=== PATIENT | female | born 1985 ===

== ENCOUNTER 2021-02-20 07:42 | Outpatient (REF) | payer OTHER, SELFPAY ==
[2021-02-20 08:43] LABS: Hematocrit 38.5 % (37-47); Hemoglobin 12.1 g/dl (12.0-16.0); Mean Corpuscular HGB Conc 31.4 g/dl (31.0-35.0); Mean Corpuscular Hemoglobin 27.2 pg (27.0-33.0); Mean Corpuscular Volume 86.5 fL (80-98); Mean Platelet Volume 11.6 fL (9.4-12.3); Platelet Count 266 X10*3/uL (160-400); Red Blood Count 4.45 X10*6/uL (4.20-5.50); Red Cell Distribution Width 12.5 % (11.0-16.0); White Blood Count 6.4 X10*3/uL (4.8-10.8)
[2021-02-20 08:54] LABS: Estimated Average Glucose 120 mg/dL; Hemoglobin A1c % 5.8 %
[2021-02-20 08:56] LABS: Alanine Aminotransferase 49 U/L (0-31); Albumin Level 4.2 g/dL (3.5-5.0); Alkaline Phosphatase 62 U/L (39-117); Anion Gap 15 (12-20); Aspartate Amino Transferase 35 U/L (5-31); Bilirubin Total 0.5 mg/dL (0.0-1.0); Blood Urea Nitrogen 8 mg/dL (9-16); Calcium 9.1 mg/dL (8.4-10.2); Carbon Dioxide 25 mmol/L (22-29); Chloride 104 mmol/L (96-108); Cholesterol 234 mg/dL; Estimated Glomerular Filt Rate > 60; Glucose Fasting 120 mg/dL (60-99); HDL Cholesterol 47 mg/dL; LDL Cholesterol Calculated 157 mg/dl; Potassium 4.8 mmol/L (3.3-5.1); Sodium 139 mmol/L (135-145); Total Protein 7.5 g/dL (6.5-8.0); Triglycerides 153 mg/dL
== END 2021-02-20 07:43 | disposition home or self-care (01) ==
LOC: HO.LAB 07:42
PROVIDERS: PCP Physician Assistant; Visit Provider Physician Assistant
DX: Z13.220 Encounter for screening for lipoid disorders (principal); Z13.29 Encounter for screening for other suspected endocrine disorder; E66.09 Other obesity due to excess calories; Z68.38 Body mass index [BMI] 38.0-38.9, adult; I10 Essential (primary) hypertension
CPT/HCPCS: 36415; 80053; 80061; 83036; 84443; 85027

== ENCOUNTER 2021-03-10 12:18 | Outpatient (REF) | payer OTHER, SELFPAY ==
[2021-03-11 05:46] LABS: CT PCR NOT DETECTED (Not Detect.); NG PCR NOT DETECTED (Not Detect.)
[2021-03-11 09:01] LABS: BV Int Neg Control Negative (Negative); BV Int Pos Control Positive (Positive)
== END 2021-03-10 12:19 | disposition home or self-care (01) ==
LOC: HO.LAB 12:18
PROVIDERS: PCP Physician Assistant; Visit Provider Advanced Practice Midwife
DX: Z01.411 Encounter for gynecological examination (general) (routine) with abnormal findings (principal); Z11.3 Encounter for screening for infections with a predominantly sexual mode of transmission; N94.6 Dysmenorrhea, unspecified; N92.1 Excessive and frequent menstruation with irregular cycle; E66.9 Obesity, unspecified; Z97.5 Presence of (intrauterine) contraceptive device; Z80.3 Family history of malignant neoplasm of breast
CPT/HCPCS: 81025; 87480; 87491; 87510; 87591; 87660

== ENCOUNTER 2021-03-18 12:50 | Emergency (ER) | payer OTHER, SELFPAY ==
--- NOTE | ~2021-03-18 | US_ITS ---
EXAMINATION: US PELVIS CLINICAL INFORMATION: Vaginal bleeding, pelvic pain. Age 35. LMP: uncertain (bleeding past month). COMPARISON: Pelvic ultrasound 08/02/2015 TECHNIQUE: Ultrasound of the pelvis is performed using both transabdominal and transvaginal transducers along with Doppler. Transvaginal imaging is performed due to inadequate visualization transabdominally. FINDINGS: Uterus: The uterus is anteverted and measures 7.7 x 3.6 x 4.0 cm. There is an IUD in position. The double wall endometrial thickness is 8 mm. The uterus is smooth in contour and has normal myometrial echogenicity. No visible fibroid. Adnexa: Both ovaries are visualized. There is normal color flow to the adnexa. There is no ovarian torsion. There is no pelvic ascites or fluid collection. Right ovary measures 1.7 x 1.1 x 1.7 cm. Volume 2 mL. Left ovary measures 3.1 x 2.3 x 3.0 cm. Volume 11 mL. There is a dominant follicle measuring 1.5 cm. US/US pelvic and transvaginal IMPRESSION: 1. Uterus: Normal size. IUD in position. Double wall endometrial thickness is 8 mm. 2. Adnexa: No adnexal mass or pelvic ascites.
[2021-03-18 12:53] VITALS: BP 132/82; PULSE 87; RESP 18; TEMP 36.6; O2SAT 99; BMI 38.5
--- NOTE | 2021-03-18 14:00 | ED.GENADULT ---
HPI - General Adult General Chief complaint: Vaginal Bleeding Stated complaint: low abd pain Time Seen by Provider: 03/18/21 13:57 History of Present Illness HPI narrative: 35-year-old female with past medical history of dysmenorrhea, obesity, hyperlipidemia is here today for vaginal bleeding. Patient reports that she is using 1-2 pads in 1 hour. Today is the 1st day that her bleeding subsided. Patient was seen month ago by fixed route bus operator for same. Was diagnosed with Gardnerella and was put on Flagyl. Patient completed the course of Flagyl few days ago. Patient reports to have pelvic pain with bleeding. She reports that the bleeding has been going on for 1 month. Patient was supposed to go for pelvic and transvaginal ultrasound, however she has not received any call. Patient is worry that her IUD is not in place. Patient wanted have the IUD removed, however she was told that she should wait until the ultrasound is done. Patient denies any other symptoms. Patient reports that she is not in any discomfort at this time. Related Data Previous Rx's Medication Instructions Recorded metronidazole 500 mg tablet 500 mg PO BID 7 Days #14 tab 03/11/21 (Flagyl) Allergies Allergy/AdvReac Type Severity Reaction Status Date / Time No Known Allergies Allergy Verified 03/18/21 12:52 [No Known Allergies*] Review of Systems Review of Systems: Constitutional : No Weight loss, No Fever, No Chills, No Night Sweats, No Fatigue, No Malaise ENT/Mouth : No Hearing loss, No Ear Pain, No Nasal Congestion, No Sinus Pain, No Hoarseness, No sore throat, No Rhinorrhea, No Swallowing Difficulty Eyes: No Eye Pain, No Swelling, No Redness, No Foreign Body, No Discharge, No Vision Changes Cardiovascular : No Chest Pain, No SOB, No Dyspnea on Exertion, No Orthopnea, No Edema, No Palpitations Respiratory : No Cough, No Sputum, No Wheezing, No Smoke Exposure, No Dyspnea Gastrointestinal : No Nausea, No Vomiting, No Diarrhea, No Constipation, No abdominal Pain, No Hematochezia, No Melena Genitourinary: Vaginal bleeding, No Dysuria, No Urinary Frequency, No Hematuria, No Urinary Incontinence, No Urgency, No Flank Pain, No Urinary Flow Changes, No Hesitancy Musculoskeletal : No joint pain, No Myalgias, No Joint Swelling Skin : No Skin Lesions, No rash Neuro : No Weakness, No Numbness, No Paresthesias, No Loss of Consciousness, No Dizziness, No Headache Psych : No Anxiety/Panic, No Depression, No SI/HI/AH/VH, No Social Issues, Heme/Lymph: No Bruising, No Bleeding,No Lymphadenopathy Endocrine : No Polyuria, No Polydipsia, No Temperature Intolerance Yes all other systems are reviewed and are negative [facility] Past Medical History Medical History Dysmenorrhea Obesity (BMI 30-39.9) Surgical History Hx of section Family History Family History Mother Breast cancer, Onset Age: 39 Maternal Grandmother Breast cancer Social History Social History Housing: Apartment Alcohol intake: never Patient Tobacco Use Status: Never used Tobacco Advance Directives: No Advance Directives Information Provided: No Patient : No 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) Sexual orientation: Straight/Heterosexual Gender identity: Female Physical Exam Vital Signs: Vital Signs: Last Vital Signs Temp 98.6 F 03/18/21 16:11 Pulse 75 03/18/21 16:11 Resp 14 03/18/21 16:11 BP 117/76 03/18/21 16:11 Pulse Ox 99 03/18/21 16:11 Body Mass Index 38.5 Const: General: healthy appearing, no acute distress and well developed Nutritional Appearance: well nourished Orientation/consciousness: patient oriented x3 HENMT: Head: Yes normal to inspection Ears: hearing grossly normal bilaterally General nose exam: Normal external nose present Face and sinus: Yes normal facial exam Mouth: Normal oral and palatal mucosa present Throat: Yes posterior oropharynx normal Eyes: General: appearance normal, both eyes and all related structures Neck: Neck: Yes normal visual inspection, Yes full ROM and Yes trachea midline Thyroid: Thyroid normal Resp: Auscultation: clear to auscultation bilaterally Cardio: Rate: regular rate Rhythm: regular rhythm GI: Inspection: Yes normal to inspection, No distended and Yes obesity Palpation (GI): Soft to palpation, not firm, nontender, no guarding and No hepatosplenomegaly present Auscultation: normal bowel sounds Skin: General skin exam: elasticity normal, turgor normal and dry skin Neuro: General: patient oriented x3 Course Course Course Narrative: 35-year-old female with past medical history of dysmenorrhea, obesity, impaired glucose metabolism, hyperlipidemia is here today for prolonged vaginal bleeding. Seen last month by fixed route bus operator diagnosed with Garnerella and completed treatment of Flagyl. Patient reports that she uses 1-2 pads an hour. Patient was supposed to go for pelvic and transvaginal ultrasound, however she reports that she has not heard from them yet. Patient is worried that her IUD is displaced. Patient reports that she does not have any discomfort at this moment and declines pain medication. Reevaluation(s) Reevaluation #1: No leukocytosis, no anemia. Chemistry pending, urinalysis showed 1+ blood in her urine. Negative for nitrates and negative for leukocytes. Reports that she has not bled much in the ED, small quarter-size spot in the last 3 hours. Reevaluation #2: Chemistry back in normal, urinalysis no ketones no nitrates no bacteria 1+ blood. Patient will be discharged home to follow-up with her OBGYN. Discussed with patient and patient is agreeable to plan of care. Verbalizes understanding of instructions. She was given the opportunity to ask questions and all questions answered. Medical Decision Making Lab Data Result diagrams: 03/18/21 16:05 03/18/21 16:05 Labs: Lab Results 03/18/21 03/18/21 03/18/21 Range/Units 15:23 16:05 16:05 WBC 8.2 (4.8-10.8) X10*3/uL RBC 4.39 (4.20-5.50) X10*6/uL Hgb 12.0 (12.0-16.0) g/dl Hct 37.6 (37-47) % MCV 85.6 (80-98) fL MCH 27.3 (27.0-33.0) pg MCHC 31.9 (31.0-35.0) g/dl RDW 12.6 (11.0-16.0) % Plt Count 282 (160-400) X10*3/uL MPV 11.0 (9.4-12.3) fL Immature Gran % (Auto) 0.2 (0.0-0.4) % Neut % (Auto) 75.0 H (45-73) % Lymph % (Auto) 16.2 L (20-40) % [place] % (Auto) 7.2 (2-11) % Eos % (Auto) 1.0 (0-4) % Baso % (Auto) 0.4 (0-2) % Lymph # (Auto) 1.3 (1.2-4.9) X10*3/uL [place] # (Auto) 0.6 (0.1-1.2) X10*3/uL Eos # (Auto) 0.1 (0.0-0.4) X10*3/uL Baso # (Auto) 0.0 (0.0-0.2) X10*3/uL Abs Immat Gran (auto) 0.02 (0.00-0.03) X10*3/uL Absolute Neuts (auto) 6.1 (2.0-8.3) X10*3/uL Absolute Nucleated RBC 0.000 (0.0-0.012) X10*3/uL Nucleated RBC % (auto) 0.0 (0.0-0.2) /100WBC Sodium 139 (135-145) mmol/L Potassium 3.8 D (3.3-5.1) mmol/L Chloride 106 (96-108) mmol/L Carbon Dioxide 25 (22-29) mmol/L Anion Gap 12 (12-20) BUN 7 L (9-16) mg/dL Creatinine 0.56 (0.5-1.4) mg/dL Estim Creat Clear Calc 136.6 Estimated GFR > 60 Random Glucose 94 (60-115) mg/dL Calcium 9.1 (8.4-10.2) mg/dL Urine Color YELLOW Urine Appearance CLEAR Urine pH 7.0 (5.0-8.0) Ur Specific [place] 1.010 (1.005-1.025) Urine Protein NEG (NEG-TRACE) MG/DL Urine Glucose (UA) NEG (NEG) MG/DL Urine Ketones NEG (NEG) MG/DL Urine Blood 1+ H (NEG) Urine Nitrite NEG (NEG) Ur Leukocyte Esterase NEG (NEG) Urine RBC 0-2 (0) /HPF Urine WBC 0 (0-4) /HPF Ur Squamous Epith Cells 1+ /LPF Urine Bacteria NONE /LPF Discharge Plan Discharge Clinical Impression: Vaginal bleeding Patient Disposition: Home, Self-Care Instructions: Dysfunctional Uterine Bleeding (ED) Additional Instructions: You were seen here today because you were bleeding vaginally for prolonged period of time. Your ultrasound was normal. Your IUD is in place. You are not anemic. Your urine showed no bacteria. Please follow-up with your OBGYN tomorrow for follow-up appointment. Please return to emergency department if your symptoms will get worse or if you experience any additional concerning symptoms. Prescriptions: No Action metronidazole [Flagyl] 500 mg tablet 500 mg PO BID 7 Days Qty: 14 RF: 0 Referrals: Trenton Willis PA-C [Primary Care Provider] - 2 days Arnel Vazquez MD [Physician] - 2 days Interventions: ED Discharge Assessment Last Done: 03/18/21 17:21 Discharge Date/Time: 03/18/21 17:21
[2021-03-18] MEDS: 0.9 % Sodium Chloride 1,000 ML 999 ML IV (14:29)
[2021-03-18 15:42] LABS: Glucose Urine UA NEG (NEG); Leukocyte Esterase Urine NEG (NEG); Nitrite Urine NEG (NEG); UACC Culture Trigger NO; Urine Blood 1+ (NEG); Urine Ketones NEG (NEG); Urine Protein NEG (NEG-TRACE)
[2021-03-18 15:52] LABS: Appearance Urine CLEAR; Color Urine YELLOW
[2021-03-18 16:09] LABS: MANUAL DIFF FLAG NO
[2021-03-18 16:10] LABS: Basophils Percent Auto 0.4 % (0-2); Eosinophils Absolute Auto 0.1 X10*3/uL (0.0-0.4); Hematocrit 37.6 % (37-47); Imm Gran Abs Auto 0.02 X10*3/uL (0.00-0.03); Imm Gran Pct Auto 0.2 % (0.0-0.4); Lymphocytes Absolute Auto 1.3 X10*3/uL (1.2-4.9); Lymphocytes Percent Auto 16.2 % (20-40); Mean Corpuscular HGB Conc 31.9 g/dl (31.0-35.0); Mean Corpuscular Hemoglobin 27.3 pg (27.0-33.0); Mean Corpuscular Volume 85.6 fL (80-98); Monocytes Absolute Auto 0.6 X10*3/uL (0.1-1.2); Monocytes Percent Auto 7.2 % (2-11); Neutrophils Absolute Auto 6.1 X10*3/uL (2.0-8.3); Platelet Count 282 X10*3/uL (160-400); Red Blood Count 4.39 X10*6/uL (4.20-5.50); Red Cell Distribution Width 12.6 % (11.0-16.0); White Blood Count 8.2 X10*3/uL (4.8-10.8)
[2021-03-18 16:11] VITALS: BP 117/76; PULSE 75; RESP 14; TEMP 37; O2SAT 99
[2021-03-18 16:32] LABS: Anion Gap 12 (12-20); Blood Urea Nitrogen 7 mg/dL (9-16); Calcium 9.1 mg/dL (8.4-10.2); Carbon Dioxide 25 mmol/L (22-29); Chloride 106 mmol/L (96-108); Creatinine Clr Calc Pharmacy 136.6; Estimated Glomerular Filt Rate > 60; Glucose Random 94 mg/dL (60-115); Potassium 3.8 mmol/L (3.3-5.1); Sodium 139 mmol/L (135-145)
[2021-03-18 16:45] LABS: RBC Urine 0-2 /HPF (0); Squamous Epithelial Cell Urine 1+ /LPF; WBC Urine 0 /HPF (0-4)
== END 2021-03-18 17:21 | disposition home or self-care (01) ==
PROVIDERS: Nurse Practitioner Family; Emergency Provider Emergency Medicine; PCP Physician Assistant
DX: N93.9 Abnormal uterine and vaginal bleeding, unspecified (principal); Z79.899 Other long term (current) drug therapy
CPT/HCPCS: 36415; 76830; 76856; 80048; 81001; 85025; 96360; 99283; 99284

== ENCOUNTER → 2021-04-12 14:55 | Outpatient (BNVA) | payer OTHER, SELFPAY | PROVIDERS: Visit Provider Advanced Practice Midwife ==

== ENCOUNTER → 2021-05-06 12:56 | Outpatient (BNVA) | payer OTHER, SELFPAY | PROVIDERS: Visit Provider Advanced Practice Midwife | DX: Z30.432 Encounter for removal of intrauterine contraceptive device (principal); Z30.011 Encounter for initial prescription of contraceptive pills | CPT/HCPCS: 58301 ==

== ENCOUNTER 2021-10-14 15:34 | Outpatient (REF) | payer OTHER, SELFPAY ==
--- NOTE | ~2021-10-14 | MM_ITS ---
EXAMINATION: MM SCREENING DIGITAL BREAST TOMOSYNTHESIS, BILATERAL CLINICAL INFORMATION: Screening. Asymptomatic. The lifetime risk of breast cancer based on the Tyrer-Cuzick Model is 34.1 Additional annual screening with breast MRI may be of benefit in women with a score of 20% or greater. COMPARISON: Mammography: None TECHNIQUE: Digital breast tomosynthesis is performed in both the craniocaudal and mediolateral oblique views along with computer-aided detection (CAD). Synthesized 2D images are generated from the tomosynthesis. FINDINGS: There are scattered areas of fibroglandular density (ACR BI-RADS breast composition Category b). There are no significant masses, abnormal calcifications, or other abnormalities. MM/MM tomosynthesis screening BI IMPRESSION: No mammographic evidence of malignancy. ASSESSMENT: BI-RADS 1: Negative RECOMMENDATION: Routine annual mammography screening. This patient's information was entered into a reminder system with a target due date for their next mammogram.
== END 2021-10-14 15:35 | disposition home or self-care (01) ==
LOC: HO.MAMMO 15:34
PROVIDERS: PCP Physician Assistant; Visit Provider Physician Assistant
DX: Z12.31 Encounter for screening mammogram for malignant neoplasm of breast (principal)
CPT/HCPCS: 77063; 77067

== ENCOUNTER 2022-01-12 11:28 | Outpatient (REF) | payer OTHER, SELFPAY ==
--- NOTE | ~2022-01-12 | XR_ITS ---
EXAMINATION: XR HAND, RIGHT CLINICAL INFORMATION: Pain right hand COMPARISON: None TECHNIQUE: PA, lateral, and oblique views of the right hand. FINDINGS: The bones and soft tissues are normal. No fracture. Alignment is anatomic. Joint spaces are maintained. No erosions or soft tissue calcifications. XR/XR hand RT 2V IMPRESSION: Unremarkable right hand.
== END 2022-01-12 11:29 | disposition home or self-care (01) ==
LOC: HO.XRAY 11:28
PROVIDERS: PCP Physician Assistant; Visit Provider Physician Assistant
DX: M79.641 Pain in right hand (principal)
CPT/HCPCS: 73120

== ENCOUNTER 2022-01-13 07:07 | Outpatient (REF) | payer OTHER, SELFPAY ==
[2022-01-13 08:55] LABS: Hematocrit 38.3 % (37.0-47.0); Hemoglobin 12.1 g/dl (12.0-16.0); Mean Corpuscular HGB Conc 31.6 g/dl (31.0-35.0); Mean Corpuscular Hemoglobin 27.4 pg (27.0-33.0); Mean Corpuscular Volume 86.8 fL (80.0-98.0); Mean Platelet Volume 11.2 fL (9.4-12.3); Platelet Count 337 X10*3/uL (160-400); Red Blood Count 4.41 X10*6/uL (4.20-5.50); Red Cell Distribution Width 12.7 % (11.0-16.0); White Blood Count 8.3 X10*3/uL (4.8-10.8)
[2022-01-13 09:12] LABS: Estimated Average Glucose 105 mg/dL; Hemoglobin A1c % 5.3 %
[2022-01-13 09:37] LABS: Alanine Aminotransferase 19 U/L (0-31); Albumin Level 3.9 g/dL (3.5-5.0); Alkaline Phosphatase 50 U/L (39-117); Anion Gap 13 (12-20); Aspartate Amino Transferase 20 U/L (5-31); Bilirubin Total 0.4 mg/dL (0.0-1.0); Blood Urea Nitrogen 10 mg/dL (9-16); Calcium 8.6 mg/dL (8.4-10.2); Carbon Dioxide 23 mmol/L (22-29); Chloride 105 mmol/L (96-108); Cholesterol 246 mg/dL; Estimated Glomerular Filt Rate > 60; Glucose Fasting 118 mg/dL (60-99); HDL Cholesterol 61 mg/dL; LDL Cholesterol Calculated 149 mg/dl; Potassium 4.5 mmol/L (3.3-5.1); Sodium 136 mmol/L (135-145); Total Protein 7.2 g/dL (6.5-8.0); Triglycerides 182 mg/dL
== END 2022-01-13 07:08 | disposition home or self-care (01) ==
LOC: HO.LAB 07:07
PROVIDERS: PCP Physician Assistant; Visit Provider Physician Assistant
DX: E78.5 Hyperlipidemia, unspecified (principal); R73.09 Other abnormal glucose
CPT/HCPCS: 36415; 80053; 80061; 83036; 84443; 85027

== ENCOUNTER 2022-02-09 10:34 | Outpatient (RCR) | payer OTHER, SELFPAY ==
--- NOTE | 2022-02-09 11:46 | MHC.OT.EP ---
[address] [phone] Occupational Therapy Plan of Care Date of Evaluation: 02/09/22 Diagnosis: Right hand pain Assessment: Pt. is a 36 y/o female referred to OT with R hand 5th digit pain in PIP joint. Pt reports no significant injury, although approx 2 year history of worsening pain and decreased strength. A 50% limitation is noted per the Quick DASH assessment. Pt. was educated in role of OT, POC, and goals. Manuela would benefit from skilled OT services to address noted barriers and assist in return to PLOF. Frequency and Duration: The patient will be seen 2x/wk for 4 weeks Short Term Goals: Pain free with BADL's/IADL's Improve phys assistant strength by 20# to inc ease with carrying/lifting Pt. will make full composite fist w/out pain IND with HEP for stretching/strengthening Quick DASH <20% Purchasing Intern Goals: Same as above Treatment Plan: Therapeutic Exercise Therapeutic Activity Home Exercise Program Splinting Patient Education ADL Training Ultrasound Paraffin Fluidotherapy MHP Joint Mobilization Soft Tissue Mobilization Electronically Signed By: Chyna Michel MS OTR/L Please Sign and return to therapist. Thank you once again for your referral.
== END 2022-05-10 15:45 | disposition home or self-care (01) ==
LOC: HO.OT 10:34
PROVIDERS: PCP Physician Assistant; Visit Provider Physician Assistant
DX: M79.641 Pain in right hand (principal)
CPT/HCPCS: 97035; 97165

== ENCOUNTER 2022-10-24 13:42 | Outpatient (REF) | payer OTHER, SELFPAY ==
--- NOTE | ~2022-10-24 | MM_ITS ---
EXAMINATION: MM SCREENING DIGITAL BREAST TOMOSYNTHESIS, BILATERAL CLINICAL INFORMATION: Screening. Asymptomatic. The lifetime risk of breast cancer based on the Tyrer-Cuzick Model is 25%. COMPARISON: Mammography: 10/14/2021 (baseline) TECHNIQUE: Digital breast tomosynthesis is performed in both the craniocaudal and mediolateral oblique views along with computer-aided detection (CAD). Synthesized 2D images are generated from the tomosynthesis. FINDINGS: There are scattered areas of fibroglandular density (ACR BI-RADS breast composition Category b). There are no significant masses, abnormal calcifications, or other abnormalities. Parenchymal pattern is similar to baseline exam. No architectural abnormality. The axilla and skin contours are unremarkable. MM/MM tomosynthesis screening BI IMPRESSION: No mammographic evidence of malignancy. ASSESSMENT: BI-RADS 1: Negative RECOMMENDATION: -Routine annual mammography screening. -The lifetime risk of breast cancer based on the Tyrer-Cuzick Model is 25%. Additional annual adjunct screening with breast MRI may be of benefit in women with a risk score of 20% or greater. This patient's information was entered into a reminder system with a target due date for their next mammogram.
== END 2022-10-24 13:43 | disposition home or self-care (01) ==
LOC: HO.MAMMO 13:42
PROVIDERS: Visit Provider Physician Assistant
DX: Z12.31 Encounter for screening mammogram for malignant neoplasm of breast (principal)
CPT/HCPCS: 77063; 77067

== ENCOUNTER 2023-10-31 14:58 | Outpatient (REF) | payer OTHER, SELFPAY | END 2023-10-31 14:59 | disposition home or self-care (01) | LOC: HO.MAMMO 14:58 | PROVIDERS: PCP Physician Assistant; Visit Provider Advanced Practice Midwife | DX: Z12.31 Encounter for screening mammogram for malignant neoplasm of breast (principal) | CPT/HCPCS: 77063; 77067 ==

== ENCOUNTER → 2023-10-31 15:15 | Outpatient (BNV) | payer OTHER, SELFPAY | PROVIDERS: PCP Physician Assistant; Visit Provider Radiology Diagnostic Radiology | DX: Z12.31 Encounter for screening mammogram for malignant neoplasm of breast (principal) | CPT/HCPCS: 77063; 77067 ==

== ENCOUNTER 2023-11-23 08:38 | Outpatient (AMB) | payer OTHER, SELFPAY ==
--- NOTE | 2023-11-23 08:38 | AM.OFFWIN_ITS ---
Intake Vital Signs 11/23/23 08:57 Height 4 ft 11 in Weight 191 lb BMI 38.6 BP 110/80 Blood Pressure Location Lt brachial Position Sitting Pulse 93 Pulse Source Pulse Oximeter Temp 97.7 F Temp Source Temporal Artery Scan Pulse Oximetry (%) 97 Oxygen Delivery Method Room Air Intake Visit Reasons: EP sore throat Intake Note: pt is here today for sore throat started 11/12 Patient Tobacco Use Status: Never used Tobacco Allergies No Known Allergies [No Known Allergies*] Allergy (Verified 11/23/23 09:18) Medication List - Last Reconciled 11/23/23 by CACHORRO Bell desogestrel-ethinyl estradiol 0.15-0.03 mg (Apri) 1 tab PO DAILY prednisone 20 mg PO BID Do you need a note to return to daycare/school/sports/work: Yes HPI HPI Comments History of Present Illness Details Patient is a 38-year-old female in today for a sick visit. Patient states that she developed upper respiratory symptoms of cough, sore throat, chest congestion dizziness P this appointment. She reports the symptoms have mostly resolved however she still has cough which is keeping her up at night. Denies chest pain or shortness of breath. Denies nausea vomiting and diarrhea. Patient has not tried medication for relief. In office strep is negative. [facility] Medical History Dysmenorrhea Obesity (BMI 30-39.9) Surgical History Hx of section Family History Mother Breast cancer, Onset Age: 39 Maternal Grandmother Breast cancer Social History Housing: Apartment Alcohol intake: never Patient Tobacco Use Status: Never used Tobacco e-Cigarette/Vaping Use: Never Used Second Hand Smoke Exposure: No service: No Current occupational status: other Current occupation: self employed Sexual orientation: Straight/Heterosexual Gender identity: Female Cognitive needs: No Hearing needs: No Vision needs: No Female Reproductive History Menstrual Age of Menarche: 14 Review of Systems Const All systems reviewed & are unremarkable except as noted in HPI and below Physical Exam Vital Signs: Last Vital Signs Temp 97.7 F 11/23/23 08:57 Pulse 93 11/23/23 08:57 BP 110/80 11/23/23 08:57 Pulse Ox 97 11/23/23 08:57 Oxygen Delivery Method Room Air 11/23/23 08:57 BMI result Body Mass Index 38.6 Const Other: Appearance: Alert.? Oriented X3.? No acute distress.? Head: Normocephalic, atraumatic, Eyes: Pupils equal, round and reactive to light.? ENT: Pharynx erythema, no tonsillar exudate. TM intact and pearly serrato. Neck: Normal inspection.? Neck supple.? CVS: Normal heart rate and rhythm.? Pulses normal.? Respiratory: No respiratory distress.? Breath sounds normal.? Neuro: Oriented X 3.? Results AMB Rapid Strep AMB Rapid Strep Positive Last Edit by Jayce Rueda MA on 11/23/23 09:11 Assessment & Plan Assessment & Plan (1) Cough: Comment: Patient has lingering cough following likely upper respiratory infection. Will prescribe prednisone. Patient has also been educated that she can try [id number] cough drops. She has been instructed to drink plenty water. She has been educated on signs of worsening symptoms when to report back to the walk-in or when to present to the ED Code(s): R05.9 - Cough, unspecified Qualifiers: Cough type: acute Qualified Code(s): R05.1 - Acute cough Plan: Take your medications as prescribed. If you were prescribed antibiotics today, it is important that you take your medication to their entirety, do not skip any doses, do not finish them early. Follow-up with your primary care provider this week. Return to the emergency department with new or worsening symptoms. Such as fevers, chills, chest pain, shortness of breath, nausea, vomiting, dizziness, headache, vision changes, lethargy In case of emergency call 911 Plan follow up with pcp. Medications: New prednisone 20 mg PO BID 10 tabs 0RF Coding Level of Care Code Est Pt Level 3 (48255) Diagnoses Acute cough R05.1 Cough type: acute Time Spent (min) 21
[2023-11-23 08:57] VITALS: BP 110/80; PULSE 93; TEMP 36.5; O2SAT 97; BMI 38.6
== END 2023-11-23 10:41 | disposition home or self-care (01) ==
PROVIDERS: PCP Physician Assistant; Visit Provider Nurse Practitioner Primary Care
DX: R05.1 Acute cough (principal)
CPT/HCPCS: 99213

== ENCOUNTER 2023-12-07 13:13 | Outpatient (AMB) | payer OTHER, SELFPAY ==
[2023-12-07 13:28] VITALS: BP 126/70; PULSE 108; O2SAT 98; BMI 38.2
--- NOTE | 2023-12-07 13:28 | A.OFFPC_ITS ---
Vital Signs 12/07/23 13:28 Height 4 ft 11 in Weight 189 lb 6 oz BMI 38.2 BP 126/70 Blood Pressure Location Lt brachial Position Sitting Pulse 108 H Pulse Source Pulse Oximeter Pulse Oximetry (%) 98 Oxygen Delivery Method Room Air Intake Visit Reasons: Anual Exam Intake Note: Patient is here today for a physical. 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 Accompanied by: Self / Same As Patient Allergies No Known Allergies [No Known Allergies*] Allergy (Verified 12/07/23 13:37) Medication List - Last Reconciled 12/07/23 by Trenton Willis PA-C desogestrel-ethinyl estradiol 0.15-0.03 mg (Apri) 1 tab PO DAILY Tobacco use date assessed: 12/07/23 Dental Screening Dental Screen Date: 12/07/23 Did you have a dental visit in the last 12 months?: Yes Did you have a dental problem in the last 6 months where you did not have access to dental care?: No Was dental information given to patient?: Patient has dentist HPI Anual Exam HPI Details patient is a 38-year-old female here today for annual physical.? Patient does not have any past medical history and does not take any? regular medications. Concerns-> no concerns today .. Borderline high cholesterol: Recent lipid panel showing borderline high total cholesterol. Has been working on lifestyle and dietary modifications .. Impaired glucose metabolism: Has a history of slightly elevated fasting blood sugar. Has been working on reducing her soda intake. .. Obesity: Has lost a small amount of weight since last office visit, Unfortunately continues to have a BMI well over 30 and has found very difficult to lose weight even though trying diet. ? Vaccines:? up-to-date with tetanus. UTD with COVID Vaccine. declines flu . .. 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 Has gotten PAP which was normal. [facility] Medical History (Updated 12/07/23 @ 13:49 by Trenton Willis PA-C) Systolic murmur Dysmenorrhea Obesity (BMI 30-39.9) Surgical History Hx of section Family History Mother Breast cancer, Onset Age: 39 Maternal Grandmother Breast cancer Social History (Updated 12/07/23 @ 13:40 by Trenton Willis PA-C) Housing: Apartment Alcohol intake: never Patient Tobacco Use Status: Never used Tobacco e-Cigarette/Vaping Use: Never Used Second Hand Smoke Exposure: No service: No Current occupational status: employed and other Current occupation: [employer] Sexual orientation: Straight/Heterosexual Gender identity: Female Cognitive needs: No Hearing needs: No Vision needs: No Female Reproductive History Menstrual Age of Menarche: 14 Questionnaire Thrive Questionnaire Date Thrive assessed: 01/12/22 JANI-7 AMB Questionnaire JANI-7 Date JANI - 7 assessed: 01/12/22 Source: Developed by Drs. Kelvin Up, Britt Arnold, Gerber Alberto and colleagues, with an educational risa from [employer]. Review of Systems Const Denies body aches, Denies chills, Denies excessive sweating, Denies fatigue, Denies fever(s) and Denies headache(s) Eyes Denies blurry vision ENT Denies dysphagia, Denies vertigo, Denies dizziness, Denies headache(s), Denies hearing loss and Denies tinnitus Card Denies chest pain, Denies chest pain with activity, Denies syncope, Denies irregular heart rhythm and Denies dyspnea Resp Denies chest congestion, Denies cough, Denies hemoptysis, Denies dyspnea and Denies wheezing GI Denies abdominal pain, Denies melena, Denies hematochezia, Denies coffee ground emesis, Denies dysphagia, Denies diarrhea, Denies nausea and Denies vomiting Denies urinary frequency, Denies dysuria, Denies urinary hesitancy and Denies urinary urgency Musc Denies arthralgias, Denies limited range of motion, Denies muscle cramps and Denies muscle weakness Skin/Breast Denies rash and Denies skin ulcer Neuro Denies Abnormal speech present, Denies confusion, Denies vertigo, Denies dizziness, Denies syncope, Denies headache(s), Denies memory loss and Denies seizure-like activity Psych Denies anxiety, Denies confusion, Denies depression, Denies memory loss, Denies panic attacks and Denies paranoia Endo Denies excessive sweating, Denies fatigue, Denies flushing, Denies polydipsia and Denies polyuria Aller/Immun Denies wheezing Physical exam (Primary Care) Vital Signs: Last Vital Signs Pulse 108 H 12/07/23 13:28 BP 126/70 12/07/23 13:28 Pulse Ox 98 12/07/23 13:28 Oxygen Delivery Method Room Air 12/07/23 13:28 BMI result Body Mass Index 38.2 BMI Assessment/Plan discussion: High BMI High, discussed plan: lifestyle, weight reduction, dietary and physical activity Tobacco/Smoking Status: Tobacco use Status Tobacco use date assessed 12/07/23 12/07/23 13:36 Patient Tobacco Use Status Never used Tobacco 12/07/23 13:36 e-Cigarette/Vaping Use Never Used 12/07/23 13:36 Thrive Assessment: Date of Thrive Assessment Date Thrive assessed 01/12/22 12/07/23 13:36 Const General: cooperative, comfortable, no acute distress, alert and awake; No confusion Orientation/consciousness: oriented to person, oriented to place, patient oriented x3 and No confusion HENMT Head: Yes normocephalic Ears: external ears normal and TM's normal bilaterally Face and sinus: No sinus tenderness Mouth: Normal oral and palatal mucosa present and tongue normal Teeth and gingiva: dentition normal and gingiva normal Throat: Yes posterior oropharynx normal, Yes tonsils normal and Yes uvula midline Eyes Conjunctivae: conjunctivae normal Sclerae: sclerae normal Pupils: Equal, round and reactive pupils present EOM: EOMs intact bilaterally Direct Ophthalmoscopy: No no photophobia Neck Neck: Yes no lymphadenopathy, No tender and Yes no JVD Thyroid: Thyroid normal Carotids: no bruits Chest Chest palpation & inspection: no tenderness Resp Effort & Inspection: normal respiratory effort, no audible wheezes, not labored and no stridor Auscultation: no crackles, no rales, no rhonchi and no wheezes Cardio Jugular venous distension: no JVD Rate: regular rate, not bradycardic and not tachycardic Rhythm: regular rhythm Bruits: no carotid bruits Peripheral pulses: Peripheral pulses 2+ throughout GI Inspection: Yes normal to inspection, No abdominal wall ecchymosis and No visible herniation Palpation (GI): Soft to palpation, nontender, no guarding, not rigid and No hepatosplenomegaly present Auscultation: normoactive bowel sounds General: Yes no CVA tenderness Back/Spine/Pelvis Back: no CVA tenderness and No back tenderness Cervical Spine: cervical ROM normal Thoracic/Lumbar Spine: thoracic and lumbar spine normal to inspection, straight leg raise negative bilaterally, No thoraco-lumbar ROM limited and No lumbar spinal tenderness Skin Lesions: no lesions Rashes: no rashes Wounds: no wounds Neuro General: oriented to person, oriented to place, patient oriented x3, CN's II-XI intact bilaterally and No confusion Cranial nerves: Yes Equal, round and reactive pupils present and Yes Normal accommodation reflex present Cognition (Neuro): normal cognition Speech: No Abnormal speech present Gait exam (Neuro): Normal gait present Motor exam (neuro): 5/5 motor strength present throughout Extrem Right upper extremity: full ROM; no cyanosis Left upper extremity: full ROM; no cyanosis Right lower extremity: no edema Left lower extremity: no edema Psych Appearance: grossly normal Mental Status: mental status grossly normal Affect: normal affect Attitude: cooperative Thought process: Normal thought process present Assessment and Plan Assessment & Plan (1) Annual physical exam: Code(s): Z00.00 - Encounter for general adult medical examination without abnormal findings (2) Obese: Code(s): E66.9 - Obesity, unspecified Qualifiers: Obesity type: due to excess calories Obesity classification: adult class 2 (BMI 35 - 39.9) Serious obesity comorbidity presence: without serious comorbidity Body mass index: BMI 38.0-38.9 Qualified Code(s): E66.09 - Other obesity due to excess calories; Z68.38 - Body mass index [BMI] 38.0-38.9, adult Plan: Patient does understand her BMI is over 30 and has been working on reducing her weight by being more physically active and adapting to better eating habits. (3) HLD (hyperlipidemia): Code(s): E78.5 - Hyperlipidemia, unspecified Qualifiers: Hyperlipidemia type: mixed hyperlipidemia Qualified Code(s): E78.2 - Mixed hyperlipidemia Plan: Patient's most recent lipid panel elevated with a total cholesterol 230. Will continue to follow and continue working on lifestyle to reduce high cholesterol foods. (4) Impaired glucose metabolism: Code(s): R73.09 - Other abnormal glucose Plan: Patient does have a diagnosis of impaired glucose metabolism, most recent A1c of 5.8. Will continue to follow fasting blood sugar and A1c. Advised on low carbohydrate diet and being more physically active to reduce her weight. Orders: Orders Lipid Panel Today E78.2 - Mixed hyperlipidemia Hemoglobin A1c Today R73.09 - Other abnormal glucose Comprehensive [place]. Panel Fast Today R73.09 - Other abnormal glucose Complete Blood Count no Diff Today R73.09 - Other abnormal glucose Patient Instructions: Goal: Total cholesterol to be below 200, lose weight Barriers: At he wants to physical activity and healthy eating habits. Coding Level of Care Code Est Pt Prev Care 18-39y([id number]) Diagnoses Annual physical exam Z00.00 Class 2 obesity due to excess calories without serious comorbidity with body mass index (BMI) of 38.0 to 38.9 in adult E66.09; Z68.38 Obesity type: due to excess calories Obesity classification: adult class 2 (BMI 35 - 39.9) Serious obesity comorbidity presence: without serious comorbidity Body mass index: BMI 38.0-38.9 Mixed hyperlipidemia E78.2 Hyperlipidemia type: mixed hyperlipidemia Impaired glucose metabolism R73.09
== END 2023-12-07 13:55 | disposition home or self-care (01) ==
PROVIDERS: PCP Physician Assistant; Visit Provider Physician Assistant
DX: Z00.00 Encounter for general adult medical examination without abnormal findings (principal); E66.09 Other obesity due to excess calories; Z68.38 Body mass index [BMI] 38.0-38.9, adult; E78.2 Mixed hyperlipidemia; R73.09 Other abnormal glucose
CPT/HCPCS: 99395

== ENCOUNTER 2024-01-10 09:35 | Outpatient (REF) | payer OTHER, SELFPAY ==
[2024-01-11 06:07] LABS: CT PCR NOT DETECTED (Not Detect.); NG PCR NOT DETECTED (Not Detect.)
[2024-01-11 11:08] LABS: Bacterial Vaginosis PCR NEGATIVE (Negative); Candida Group PCR NOT DETECTED (Not Detect); Candida glab krusei PCR NOT DETECTED (Not Detect); Trichomonas vaginalis PCR NOT DETECTED (Not Detect)
[2024-01-15 18:09] LABS: HPV mRNA E6/E7 Not Detected (Not Detected)
== END 2024-01-10 09:36 | disposition home or self-care (01) ==
LOC: HO.LAB 09:35
PROVIDERS: PCP Physician Assistant; Visit Provider Advanced Practice Midwife
DX: Z01.419 Encounter for gynecological examination (general) (routine) without abnormal findings (principal); N89.8 Other specified noninflammatory disorders of vagina; E66.9 Obesity, unspecified; R73.09 Other abnormal glucose; Z80.3 Family history of malignant neoplasm of breast; Z98.891 History of uterine scar from previous surgery; Z11.3 Encounter for screening for infections with a predominantly sexual mode of transmission
CPT/HCPCS: 0352U; 36415; 87491; 87591; 87624; 88175; 99395

== ENCOUNTER 2024-01-10 09:35 | Outpatient (AMB) | payer OTHER, SELFPAY ==
[2024-01-10 09:48] VITALS: BP 116/68; BMI 38.6
--- NOTE | 2024-01-10 09:48 | MHC.OFFVIS ---
Vital Signs 01/10/24 09:48 Height 4 ft 11 in Weight 191 lb BMI 38.6 BP 116/68 Intake Visit Reasons: MASSEUR/MASSEUSE annual exam Provider Service Representative Required: No Provider Service Representative Services: Provider Service Representative Present Information Interpreted: clinical only Sample Hand: Sample Hand Present Allergies No Known Allergies [No Known Allergies*] Allergy (Verified 01/10/24 09:48) Medication List - Last Reconciled 01/10/24 by Karol Eugene CNM desogestrel-ethinyl estradiol 0.15-0.03 mg (Apri) 1 tab PO DAILY Is last menstrual period known: Yes Last menstrual period: 01/05/24 Patient : No Do you need a note to return to daycare/school/sports/work: No HPI HPI MASSEUR/MASSEUSE annual exam: Details: Patient is here for medical assistant ob gyn annual exam. She has a strong family history of breast cancer her mother when she was 8 and her grandmother before she was born. She herself has prediabetes she saw her primary care provider last month she had her mammogram done last month and she keeps up with that because she hasincentive to be there for her children. She will be getting her fasting blood work soon to check on the pre diabetes. She has no worries about STIs and accepted cultures during the exam with the Pap smear but declines blood work for STIs as she has no need for concern she is with her of 18 years when he has not with her he has with the children. Her 2 children have autism oldest 1 is more severely affected. 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 Is on a pre control pills and taking 1 pill every day and reviewed for usage with me she likes them and they make her periods very light short about a day and a half and she likes that as well as everything else about them and intends to stay on them. [facility] Medical History (Updated 01/10/24 @ 10:47 by Karol Eugene CNM) Systolic murmur Dysmenorrhea Obesity (BMI 30-39.9) Surgical History (Updated 01/10/24 @ 10:45 by Karol Eugene CNM) Hx of section Family History Mother Breast cancer, Onset Age: 39 Maternal Grandmother Breast cancer Social History Housing: Apartment Alcohol intake: never Patient Tobacco Use Status: Never used Tobacco e-Cigarette/Vaping Use: Never Used Second Hand Smoke Exposure: No service: No Current occupational status: employed and other Current occupation: [employer] Sexual orientation: Straight/Heterosexual Gender identity: Female Cognitive needs: No Hearing needs: No Vision needs: No Female Reproductive History Menstrual Age of Menarche: 14 Duration of menses: <3 days Date of last menstrual period: 01/05/24 control method: pills Total pregnancies: 2 Full term: 2 Date of last pap smear: 03/06/20 (negative pap & HPV) History of abnormal pap smear: No Physical Exam Vital Signs: Last Vital Signs BP 116/68 01/10/24 09:48 BMI result Body Mass Index 38.6 Const General: healthy appearing, comfortable, no acute distress, well developed and alert Nutritional Appearance: average body habitus Limitations: no limitations HEENT Head: Yes normocephalic Neck Neck: Yes normal visual inspection Chest Chest palpation & inspection: normal inspection of the chest Breast/axilla inspection: normal inspection of the breasts and normal inspection of the axillae Breast/axilla palpation: normal palpation of the breasts and normal palpation of the axillae Resp Effort & Inspection: normal respiratory effort GI Inspection: Yes normal to inspection, No Abdominal wall edema and No distended Palpation (GI): Soft to palpation and nontender Other: External exam within normal limits vagina pink and moist cervix is nulliparous pink smooth tightly closed no abnormal mucus cervical mucus/discharge this consistent with consistent OCP use. Uterus is small midposition difficult to feel secondary to adipose but nontender patient had ex excellent muscle tone but was not able to recreate a Kegel on purpose but has no difficulty at all with holding her urine or anything adnexa nontender as well. General: Yes bladder normal to palpation External Female Exam: normal external appearance and normal appearance of the urethra Speculum Exam - Vagina: normal appearance of the vagina, normal palpation and normal vaginal discharge Speculum Exam - Cervix: normal appearance of the cervix, normal palpation and nontender Bimanual exam- vagina & uterus: normal bimanual exam, normal palpation, uterine size normal, bladder normal to palpation, consistency normal, normal palpation, uterine mobility normal, uterine shape normal, No Cervical tenderness present, non-tender and no cervical motion tenderness Bimanual Exam- Adnexa, other: normal adnexae, no masses, normal and No adnexal tenderness Assessment & Plan Assessment & Plan (1) Obesity (BMI 30-39.9): Code(s): E66.9 - Obesity, unspecified Category: Medical (2) Impaired glucose metabolism: Code(s): R73.09 - Other abnormal glucose Category: Medical (3) Family history of breast cancer in first degree relative: Comment: Has been getting screening mammograms annually for years. Code(s): Z80.3 - Family history of malignant neoplasm of breast Category: Medical (4) Hx of section: Code(s): Z98.891 - History of uterine scar from previous surgery Category: Surgical (5) Surveillance for control, oral contraceptives: Code(s): Z30.41 - Encounter for surveillance of contraceptive pills Category: Medical (6) Well woman exam with routine gynecological exam: Code(s): Z01.419 - Encounter for gynecological examination (general) (routine) without abnormal findings Category: Medical (7) Cervical cancer screening: Code(s): Z12.4 - Encounter for screening for malignant neoplasm of cervix Category: Medical Plan -----Discussed in this visit the following: healthy balanced diet, regular and consistent exercise, getting recommended health screens, doing the best she can for her particular health concerns, kegel exercises, pap smear screening and followup recommendations, mammography screening and SBE, normal changes in cycles in her life stage--- .----I reviewed available options for Control Methods and their associated side effect profiles. In particular, we discussed the method most of interest to her. She is continuing her excellent efforts at self-care and being is healthy as she can be she is going to be getting her fasting blood work to check on the pre diabetes soon and intends to do whatever she can to be as healthy as she can be. She gets her screening mammograms because she wants to be there for her children and she is happy on the control pills and taking every day and wants to stay on them and will so. Refill sent. Orders: Orders CT NG by PCR Today N89.8 - Other specified noninflammatory disorders of vagina, Z11.3 - Encounter for screening for infections with a predominantly sexual mode of transmission Bacterial Vaginosis Panel Today N89.8 - Other specified noninflammatory disorders of vagina Pap Smear Today Z01.419 - Encounter for gynecological examination (general) (routine) without abnormal findings Medications: Refilled desogestrel-ethinyl estradiol 0.15-0.03 mg (Apri) 1 tab PO DAILY 84 tabs 4RF Coding Level of Care Code Est Pt Prev Care 18-39y([id number]) Diagnoses Obesity (BMI 30-39.9) E66.9 Impaired glucose metabolism R73.09 Family history of breast cancer in first degree relative Z80.3 Hx of section Z98.891 Surveillance for control, oral contraceptives Z30.41 Well woman exam with routine gynecological exam Z01.419 Cervical cancer screening Z12.4
== END 2024-01-10 10:44 | disposition home or self-care (01) ==
LOC: HO.HWSM 09:35
PROVIDERS: PCP Physician Assistant; Visit Provider Advanced Practice Midwife
DX: Z01.419 Encounter for gynecological examination (general) (routine) without abnormal findings (principal); E66.9 Obesity, unspecified; R73.09 Other abnormal glucose; Z80.3 Family history of malignant neoplasm of breast; Z98.891 History of uterine scar from previous surgery; Z30.41 Encounter for surveillance of contraceptive pills; Z12.4 Encounter for screening for malignant neoplasm of cervix
CPT/HCPCS: 99395

== ENCOUNTER 2024-02-05 09:16 | Outpatient (REF) | payer OTHER, SELFPAY ==
[2024-02-05 09:39] LABS: Hematocrit 41.8 % (37.0-47.0); Hemoglobin 13.9 g/dl (12.0-16.0); Mean Corpuscular HGB Conc 33.3 g/dl (31.0-35.0); Mean Corpuscular Hemoglobin 28.1 pg (27.0-33.0); Mean Corpuscular Volume 84.4 fL (80.0-98.0); Mean Platelet Volume 10.8 fL (9.4-12.3); Platelet Count 356 X10*3/uL (160-400); Red Blood Count 4.95 X10*6/uL (4.20-5.50); Red Cell Distribution Width 12.2 % (11.0-16.0); White Blood Count 8.5 X10*3/uL (4.8-10.8)
[2024-02-05 09:52] LABS: Estimated Average Glucose 154 mg/dL
[2024-02-05 10:02] LABS: Alanine Aminotransferase 12 U/L (0-31); Albumin Level 4.3 g/dL (3.5-5.0); Alkaline Phosphatase 62 U/L (39-117); Anion Gap 14 (12-20); Aspartate Amino Transferase 18 U/L (5-31); Bilirubin Total 0.3 mg/dL (0.0-1.0); Blood Urea Nitrogen 14 mg/dL (9-16); Calcium 9.9 mg/dL (8.4-10.2); Carbon Dioxide 22 mmol/L (22-29); Chloride 103 mmol/L (96-108); Cholesterol 285 mg/dL (<200); Estimated Glomerular Filt Rate > 60; Glucose Fasting 165 mg/dL (60-99); HDL Cholesterol 68 mg/dL (>40); LDL Cholesterol Calculated 168 mg/dL (<100); Potassium 3.9 mmol/L (3.3-5.1); Sodium 135 mmol/L (135-145); Total Protein 8.2 g/dL (6.5-8.0); Triglycerides 246 mg/dL (<150)
== END 2024-02-05 09:17 | disposition home or self-care (01) ==
LOC: HO.LAB 09:16
PROVIDERS: PCP Physician Assistant; Visit Provider Physician Assistant
DX: R73.09 Other abnormal glucose (principal); E78.2 Mixed hyperlipidemia
CPT/HCPCS: 36415; 80053; 80061; 83036; 85027

== ENCOUNTER 2024-02-06 11:36 | Outpatient (AMB) | payer OTHER, SELFPAY ==
--- NOTE | 2024-02-06 11:42 | MHC.PC.OV ---
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 Most recently found to have elevated fasting blood sugar and A1c in diabetic range 7.0.? Type 2 diabetes--> patient reports feeling a little off as of late and checked her blood sugar noted to be 228. As above patient is fasting blood sugar in the 160s and A1c is 7.0. She does have family history of type 2 diabetes PLAN: Will start metformin 500 an implemented diabetic diet. .. .. Obesity: Has lost a small amount of weight since last office visit, Unfortunately continues to have a BMI well over 30 and has found very difficult to lose weight even though trying diet. [facility] Medical History (Updated 02/06/24 @ 11:55 by Trenton Willis PA-C) Systolic murmur Dysmenorrhea Obesity (BMI 30-39.9) Surgical History Hx of section Family History Mother Breast cancer, Onset Age: 39 Maternal Grandmother Breast cancer Social History Housing: Apartment Alcohol intake: never Patient Tobacco Use Status: Never used Tobacco e-Cigarette/Vaping Use: Never Used Second Hand Smoke Exposure: No service: No Current occupational status: employed and other Current occupation: [employer] Sexual orientation: Straight/Heterosexual Gender identity: Female Cognitive needs: No Hearing needs: No Vision needs: No Female Reproductive History Menstrual Age of Menarche: 14 Questionnaire Thrive Questionnaire Date Thrive assessed: 01/12/22 JANI-7 AMB Questionnaire JANI-7 Date JANI - 7 assessed: 01/12/22 Source: Developed by Drs. Kelvin Up, Britt Arnold, Gerber Alberto and colleagues, with an educational risa from [employer]. Review of Systems Const Denies headache(s) Eyes Denies loss of vision ENT Denies vertigo, Denies dizziness, Denies headache(s) and Denies sore throat Card Denies chest pain, Denies leg edema and Denies lightheadedness Resp Denies cough, Denies hemoptysis and Denies wheezing GI Denies abdominal pain, Denies melena, Denies constipation, Denies diarrhea and Denies vomiting Denies urinary frequency, Denies dysuria and Denies urinary urgency Musc Denies arthralgias, Denies joint swelling, Denies numbness and Denies tingling Neuro Denies Abnormal speech present, Denies behavioral changes, Denies vertigo, Denies dizziness, Denies headache(s), Denies loss of vision, Denies memory loss, Denies numbness and Denies tingling Psych Denies anxiety, Denies behavioral changes, Denies depression, Denies memory loss and Denies panic attacks Lonnie/Lymph Denies easy bleeding and Denies easy bruising Aller/Immun Denies wheezing Physical exam (Primary Care) Vital Signs: Last Vital Signs Pulse 102 H 02/06/24 11:49 BP 116/64 02/06/24 11:49 Pulse Ox 99 02/06/24 11:49 Oxygen Delivery Method Room Air 02/06/24 11:49 BMI result Body Mass Index 38.1 Tobacco/Smoking Status: Tobacco use Status Tobacco use date assessed 12/07/23 02/06/24 11:44 Patient Tobacco Use Status Never used Tobacco 02/06/24 11:44 e-Cigarette/Vaping Use Never Used 02/06/24 11:44 Thrive Assessment: Date of Thrive Assessment Date Thrive assessed 01/12/22 02/06/24 11:44 Const General: healthy appearing, no acute distress, alert and awake Nutritional Appearance: well nourished Orientation/consciousness: oriented to person, oriented to place and oriented to time HENMT Ears: TM's normal bilaterally General nose exam: Normal nasal mucous membranes and turbinates present Eyes Conjunctivae: conjunctivae normal Sclerae: sclerae normal Pupils: Equal, round and reactive pupils present Neck Neck: Yes no lymphadenopathy and Yes no JVD Thyroid: Thyroid normal Carotids: no bruits Resp Effort & Inspection: normal respiratory effort and not tachypneic Auscultation: no crackles, no rales, no rhonchi and no wheezes Cardio Rate: regular rate Rhythm: regular rhythm Heart sounds: no murmurs and normal S1 and S2 GI Palpation (GI): Soft to palpation, nontender, no hepatomegaly and no splenomegaly Auscultation: normal bowel sounds Skin General skin exam: no rashes or lesions noted and dry skin Neuro General: oriented to person, oriented to place and oriented to time Cranial nerves: Yes Equal, round and reactive pupils present Speech: No Abnormal speech present Gait exam (Neuro): Normal gait present Motor exam (neuro): no tremor noted Extrem Right upper extremity: full ROM Left upper extremity: full ROM Right lower extremity: full ROM; no edema Left lower extremity: full ROM; no edema Psych Mental Status: mental status grossly normal Speech and movement: Normal speech and movement present Affect: normal affect Attitude: cooperative Thought process: Normal thought process present Assessment and Plan Assessment & Plan (1) DMII (diabetes mellitus, type 2): Code(s): E11.9 - Type 2 diabetes mellitus without complications Qualifiers: Diabetes mellitus complication status: with hyperglycemia Diabetes mellitus care home insulin use: without truck terminal manager use Qualified Code(s): E11.65 - Type 2 diabetes mellitus with hyperglycemia Plan: Patient does understand she has a new type 2 diabetic. She is willing to start metformin 500 daily. She will implement a diabetic diet. Will set her up with a dietitian as well to help her with diabetic diet. Goal A1c is to be below 7.0 (2) HLD (hyperlipidemia): Code(s): E78.5 - Hyperlipidemia, unspecified Qualifiers: Hyperlipidemia type: mixed hyperlipidemia Qualified Code(s): E78.2 - Mixed hyperlipidemia Plan: Most recent fasting blood cholesterol panel showing elevated total cholesterol and LDL. We did discuss the possible need of statin therapy though would like to work extensively on lifestyle dietary modifications. If LDL remains above 100 will consider low-dose statin therapy. Orders: Orders Comprehensive [place]. Panel Fast 4 Months E11.65 - Type 2 diabetes mellitus with hyperglycemia Lipid Panel 4 Months E78.2 - Mixed hyperlipidemia Referrals Transition Rn Nutrition Referral E11.65 - Type 2 diabetes mellitus with hyperglycemia Medications: New blood-glucose meter (FreeStyle Lite Meter kit) Testing once a day as needed 1 ea 0RF E11.65 - Type 2 diabetes mellitus with hyperglycemia metformin 500 mg PO DAILY 30 tabs 2RF 30 days E11.65 - Type 2 diabetes mellitus with hyperglycemia blood sugar diagnostic (FreeStyle Lite Strips) Testing once a day as needed 100 ea 3RF E11.65 - Type 2 diabetes mellitus with hyperglycemia, E11.9 - Type 2 diabetes mellitus without complications lancets (FreeStyle Lancets) Testing once a day as needed 100 ea 3RF E11.65 - Type 2 diabetes mellitus with hyperglycemia, E11.9 - Type 2 diabetes mellitus without complications Patient Instructions: Goal: A1c to be below 7.0 Barrier: Adherence to physical activity and healthy eating habits Coding Level of Care Code Est Pt Level 4 (13605) Diagnoses Type 2 diabetes mellitus with hyperglycemia, without long-term current use of insulin E11.65 Diabetes mellitus complication status: with hyperglycemia Diabetes mellitus truck terminal manager insulin use: without truck terminal manager use Mixed hyperlipidemia E78.2 Hyperlipidemia type: mixed hyperlipidemia
[2024-02-06 11:49] VITALS: BP 116/64; PULSE 102; O2SAT 99; BMI 38.1
== END 2024-02-06 12:06 | disposition home or self-care (01) ==
PROVIDERS: PCP Physician Assistant; Visit Provider Physician Assistant
DX: E11.65 Type 2 diabetes mellitus with hyperglycemia (principal); E78.2 Mixed hyperlipidemia
CPT/HCPCS: 99214

== ENCOUNTER 2024-02-12 08:21 | Outpatient (AMB) | payer OTHER, SELFPAY ==
[2024-02-12 08:34] VITALS: BMI 37.7
--- NOTE | 2024-02-12 08:34 | A.OFFVIS_ITS ---
VS Expanded 02/12/24 08:34 02/12/24 08:43 Height 4 ft 11 in 4 ft 11 in Weight 186 lb 11.704 oz 187 lb BMI 37.7 37.8 Intake Visit Reasons: Type 2 diabetes mellitus with hyperglycemia Allergies No Known Allergies [No Known Allergies*] Allergy (Verified 02/06/24 11:51) Nutrition Presentation Details: Pt presents for MNT for T2DM dx on 01/2024. Pt was referred by PCP, Merari Willis food frequency fish :not including fruits:2 x/day milk: including 2 x/wk Has questions regarding balancing meals physical activity: daily walks at work denies etoh/smoking BS Monitoring Most Recent Diabetes Results: Cholesterol 285 mg/dL (<200) H 02/05/24 HDL Cholesterol 68 mg/dL (>40) 02/05/24 Triglycerides 246 mg/dL (<150) H 02/05/24 Creatinine 0.93 mg/dL (0.5-1.4) 02/05/24 Blood Urea Nitrogen 14 mg/dL (9-16) 02/05/24 Sodium 135 mmol/L (135-145) 02/05/24 Potassium 3.9 mmol/L (3.3-5.1) 02/05/24 Chloride 103 mmol/L (96-108) 02/05/24 Carbon Dioxide 22 mmol/L (22-29) 02/05/24 Calcium 9.9 mg/dL (8.4-10.2) 02/05/24 AST 18 U/L (5-31) 02/05/24 ALT 12 U/L (0-31) 02/05/24 Total Protein 8.2 g/dL (6.5-8.0) H 02/05/24 Albumin 4.3 g/dL (3.5-5.0) 02/05/24 DNX-Hwuztjq-Os.Jeor Equation Height: 4 ft 11 in Weight: 187 lb Resting Metabolic Rate: 1445.87 Calculated Activity Level: Sedentary Calories Needed to Maintain Weight: 1735.04 Diagnosis Nutrition problem #1: food nutri know defi As related to (etiology) #1: diagnosis As evidenced by (sign/symptom) #1: knowledge deficit of diet [facility] Medical History (Updated 02/06/24 @ 11:55 by Trenton Willis PA-C) Systolic murmur Dysmenorrhea Obesity (BMI 30-39.9) Surgical History Hx of section Family History Mother Breast cancer, Onset Age: 39 Maternal Grandmother Breast cancer Social History Housing: Apartment Alcohol intake: never Patient Tobacco Use Status: Never used Tobacco e-Cigarette/Vaping Use: Never Used Second Hand Smoke Exposure: No service: No Current occupational status: employed and other Current occupation: [employer] Sexual orientation: Straight/Heterosexual Gender identity: Female Cognitive needs: No Hearing needs: No Vision needs: No Female Reproductive History Menstrual Age of Menarche: 14 Assessment & Plan Assessment & Plan (1) DMII (diabetes mellitus, type 2): Code(s): E11.9 - Type 2 diabetes mellitus without complications Category: Medical Qualifiers: Diabetes mellitus watermelon harvesting supervisor insulin use: without watermelon harvesting supervisor use Diabetes mellitus complication status: with hyperglycemia Qualified Code(s): E11.65 - Type 2 diabetes mellitus with hyperglycemia Plan: Wt: 85 Kg (01/2024 ) Est kcal needs as per MSJ: 1700 (40% carb, 30% protein/fat) Est fluid needs as per 25-30 ml/d: 2600 Est prot per day as per 1 g/kg bw: 85 Recommend fiber intake : 8-10 g per day and gradually increase to 25-28 g per day for women and 35-38 g for men or as tolerated Recommend sodium intake per day : less than 2000 mg Educated patient on: ( R = reviewed V = verbalizes understanding N/R = needs review N/A = not applicable * Food sources of carbohydrate, adequate serving sizes and its role in various health conditions: R * Differences between complex carbohydrates a simple carbohydrates, role of fiber in diet: R * Lean protein sources of foods: R * Differences between types of fats and role in diet (mono on saturated fat fatty acids, saturated fatty acids, trans fats): R V N/R * Food sources of sodium in salt and healthy modifications for heart health in kidney health: R V R/V * Vitamins and minerals: R V N/R * Healthy plate method concept: R * Physical activity: Benefits a precaution: R V N/R * Hypoglycemia protocol (rule of 15): R V N/R * Dietary prevention of Hyperglycemia: R Patient Instructions: Work on balancing meals following healthy plate method, reducing total carbs to 45 g or less per meal 3 meals/d and 0-15 g as snack 2-3 snacks per day Drink water with meals/snacks next topic: fats Coding Level of Care Code Nutr Indiv Intake (33862) Diagnoses Type 2 diabetes mellitus with hyperglycemia, without long-term current use of insulin E11.65 Diabetes mellitus watermelon harvesting supervisor insulin use: without watermelon harvesting supervisor use Diabetes mellitus complication status: with hyperglycemia Time Spent (min) 30
[2024-02-12 08:43] VITALS: BMI 37.8
== END 2024-02-12 09:14 | disposition home or self-care (01) ==
PROVIDERS: PCP Physician Assistant; Visit Provider Dietitian, Registered
DX: E11.65 Type 2 diabetes mellitus with hyperglycemia (principal)

== ENCOUNTER → 2024-02-12 08:21 | Outpatient (BNVA) | payer OTHER, SELFPAY | PROVIDERS: PCP Physician Assistant; Visit Provider Dietitian, Registered | DX: E11.65 Type 2 diabetes mellitus with hyperglycemia (principal) | CPT/HCPCS: 97802 ==

== ENCOUNTER 2024-03-11 09:26 | Outpatient (AMB) | payer OTHER, SELFPAY ==
[2024-03-11 09:41] VITALS: BMI 35.2
--- NOTE | 2024-03-11 09:41 | MHC.AMNUTRGE ---
VS Expanded 03/11/24 09:41 Height 4 ft 11 in Weight 174 lb 6.17 oz BMI 35.2 Intake Visit Reasons: T2DM w hyperglycemia/CONFIRMED Allergies No Known Allergies [No Known Allergies*] Allergy (Verified 02/06/24 11:51) Nutrition Presentation Details: Pt presents for MNT f/u for T2DM Pt reports working on diet modifications. 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) BS Monitoring Most Recent Diabetes Results: Cholesterol 285 mg/dL (<200) H 02/05/24 HDL Cholesterol 68 mg/dL (>40) 02/05/24 Triglycerides 246 mg/dL (<150) H 02/05/24 Creatinine 0.93 mg/dL (0.5-1.4) 02/05/24 Blood Urea Nitrogen 14 mg/dL (9-16) 02/05/24 Sodium 135 mmol/L (135-145) 02/05/24 Potassium 3.9 mmol/L (3.3-5.1) 02/05/24 Chloride 103 mmol/L (96-108) 02/05/24 Carbon Dioxide 22 mmol/L (22-29) 02/05/24 Calcium 9.9 mg/dL (8.4-10.2) 02/05/24 AST 18 U/L (5-31) 02/05/24 ALT 12 U/L (0-31) 02/05/24 Total Protein 8.2 g/dL (6.5-8.0) H 02/05/24 Albumin 4.3 g/dL (3.5-5.0) 02/05/24 [facility] Medical History (Updated 02/06/24 @ 11:55 by Trenton Willis PA-C) Systolic murmur Dysmenorrhea Obesity (BMI 30-39.9) Surgical History Hx of section Family History Mother Breast cancer, Onset Age: 39 Maternal Grandmother Breast cancer Social History Housing: Apartment Alcohol intake: never Patient Tobacco Use Status: Never used Tobacco e-Cigarette/Vaping Use: Never Used Second Hand Smoke Exposure: No service: No Current occupational status: employed and other Current occupation: [employer] Sexual orientation: Straight/Heterosexual Gender identity: Female Cognitive needs: No Hearing needs: No Vision needs: No Female Reproductive History Menstrual Age of Menarche: 14 Assessment & Plan Assessment & Plan (1) DMII (diabetes mellitus, type 2): Code(s): E11.9 - Type 2 diabetes mellitus without complications Category: Medical Qualifiers: Diabetes mellitus joint terminal attack controller insulin use: without senior living use Diabetes mellitus complication status: with hyperglycemia Qualified Code(s): E11.65 - Type 2 diabetes mellitus with hyperglycemia Plan: Wt: 85 Kg (01/2024 ), 79 kg (02/2024) Est kcal needs as per MSJ: 1700 (40% carb, 30% protein/fat) Est fluid needs as per 25-30 ml/d: 2600 Est prot per day as per 1 g/kg bw: 85 Recommend fiber intake : 8-10 g per day and gradually increase to 25-28 g per day for women and 35-38 g for men or as tolerated Recommend sodium intake per day : less than 2000 mg Educated patient on: ( R = reviewed V = verbalizes understanding N/R = needs review N/A = not applicable Food sources of carbohydrate, adequate serving sizes and its role in various health conditions: R Differences between complex carbohydrates a simple carbohydrates, role of fiber in diet: R Lean protein sources of foods: R Increasing fiber rich foods: R, V Differences between types of fats and role in diet (mono on saturated fat fatty acids, saturated fatty acids, trans fats): R V N/R Food sources of sodium in salt and healthy modifications for heart health in kidney health: R V R/V Vitamins and minerals: R V N/R Healthy plate method concept: R Physical activity: Benefits a precaution: R V N/R Hypoglycemia protocol (rule of 15): R V N/R Dietary prevention of Hyperglycemia: R Patient Instructions: Include fiber rich foods in your meals, start with 3 -4 grams per day and gradually increase to 12 g , then up to 28 g or as tolerated Must increase water intake to prevent constipation keep physically active as established Coding Level of Care Code Nutr Indiv Subseq (91560) Diagnoses Type 2 diabetes mellitus with hyperglycemia, without long-term current use of insulin E11.65 Diabetes mellitus senior living insulin use: without senior living use Diabetes mellitus complication status: with hyperglycemia Time Spent (min) 30
== END 2024-03-11 10:08 | disposition home or self-care (01) ==
PROVIDERS: PCP Physician Assistant; Visit Provider Dietitian, Registered
DX: E11.65 Type 2 diabetes mellitus with hyperglycemia (principal)

== ENCOUNTER → 2024-03-11 09:26 | Outpatient (BNVA) | payer OTHER, SELFPAY | PROVIDERS: PCP Physician Assistant; Visit Provider Dietitian, Registered | DX: E11.65 Type 2 diabetes mellitus with hyperglycemia (principal); Z71.3 Dietary counseling and surveillance | CPT/HCPCS: 97803 ==

== ENCOUNTER 2024-06-01 08:16 | Outpatient (REF) | payer OTHER, SELFPAY ==
[2024-06-01 11:14] LABS: Alanine Aminotransferase 15 U/L (0-31); Albumin Level 4.3 g/dL (3.5-5.0); Alkaline Phosphatase 46 U/L (39-117); Anion Gap 14 (12-20); Aspartate Amino Transferase 20 U/L (5-31); Bilirubin Total 0.6 mg/dL (0.0-1.0); Blood Urea Nitrogen 10 mg/dL (9-16); Calcium 9.6 mg/dL (8.4-10.2); Carbon Dioxide 23 mmol/L (22-29); Chloride 106 mmol/L (96-108); Cholesterol 306 mg/dL (<200); Estimated Glomerular Filt Rate > 60; Glucose Fasting 72 mg/dL (60-99); HDL Cholesterol 63 mg/dL (>40); LDL Cholesterol Calculated 215 mg/dL (<100); Potassium 3.8 mmol/L (3.3-5.1); Sodium 139 mmol/L (135-145); Total Protein 7.7 g/dL (6.5-8.0); Triglycerides 141 mg/dL (<150)
== END 2024-06-01 08:17 | disposition home or self-care (01) ==
LOC: HO.LAB 08:16
PROVIDERS: PCP Physician Assistant; Visit Provider Physician Assistant
DX: E11.65 Type 2 diabetes mellitus with hyperglycemia (principal); E78.2 Mixed hyperlipidemia
CPT/HCPCS: 36415; 80053; 80061

== ENCOUNTER 2024-06-04 11:36 | Outpatient (AMB) | payer OTHER, SELFPAY ==
[2024-06-04 11:51] VITALS: BP 122/6; PULSE 97; O2SAT 99; BMI 30.1
--- NOTE | 2024-06-04 11:51 | A.OFFPC_ITS ---
Vital Signs 06/04/24 11:51 Height 4 ft 11 in Weight 149 lb 4 oz BMI 30.1 BP 122/6 L Blood Pressure Location Lt brachial Position Sitting Pulse 97 Pulse Source Pulse Oximeter Pulse Oximetry (%) 99 Oxygen Delivery Method Room Air Intake Visit Reasons: 4 Month F/U Facility Attendant Required: No Accompanied by: Self / Same As Patient Allergies No Known Allergies [No Known Allergies*] Allergy (Verified 06/04/24 11:53) Medication List - Last Reconciled 06/04/24 by Trenton Willis PA-C blood sugar diagnostic (FreeStyle Lite Strips) Testing once a day as needed blood-glucose meter (FreeStyle Lite Meter kit) Testing once a day as needed desogestrel-ethinyl estradiol 0.15-0.03 mg (Apri) 1 tab PO DAILY lancets (FreeStyle Lancets) Testing once a day as needed metformin 500 mg PO DAILY 30 days Tobacco use date assessed: 12/07/23 Dental Screening Dental Screen Date: 12/07/23 HPI 4 Month F/U HPI Details patient is a 38-year-old female here today for follow-up visit. Patient has a past medical history significant for type 2 diabetes, obesity and hyperlipidemia. Type 2 diabetes--> at last visit we discussed patient's elevated blood sugars and was started on metformin. She admits to taking metformin on an as needed basis. She has been speaking with a mergers and acquisitions consultant about diabetic diet. Patient has lost significant amount of weight and blood sugar seems to have improved. .. Hyperlipidemia: Most recent lipid panel showing very elevated total cholesterol and LDL. Has not been taking cholesterol medication some unclear reason. PLAN: Will start statin therapy goal LDL to be below 100 .. .. Obesity: Patient has lost significant amount of weight since changing diet and doing a intermittent fasting program. . Laboratory Tests 01/13/22 02/05/24 06/01/24 07:14 09:24 08:52 Hgb 13.9 Fasting Glucose 118 H 165 H 72 Hemoglobin A1c % 5.3 7.0 H Cholesterol 246 285 H 306 H LDL Cholesterol, C alc 149 168 H 215 H [facility] Medical History Systolic murmur Dysmenorrhea Obesity (BMI 30-39.9) Surgical History Hx of section Family History Mother Breast cancer, Onset Age: 39 Maternal Grandmother Breast cancer Social History Housing: Apartment Alcohol intake: never Patient Tobacco Use Status: Never used Tobacco e-Cigarette/Vaping Use: Never Used Second Hand Smoke Exposure: No service: No Current occupational status: employed and other Current occupation: [employer] Sexual orientation: Straight/Heterosexual Gender identity: Female Cognitive needs: No Hearing needs: No Vision needs: No Female Reproductive History Menstrual Age of Menarche: 14 Questionnaire Thrive Questionnaire Date Thrive assessed: 01/12/22 AUDIT C Alcohol Use Questionnaire (AUDIT-C) 3. How often do you have six or more drinks on one occasion?: Never Total Score: 0 JANI-7 AMB Questionnaire JANI-7 Date JANI - 7 assessed: 01/12/22 Source: Developed by Drs. Kelvin Up, Britt Arnold, Gerber Alberto and colleagues, with an educational risa from [employer]. Review of Systems Const Denies headache(s) Eyes Denies loss of vision ENT Denies vertigo, Denies dizziness, Denies headache(s) and Denies sore throat Card Denies chest pain, Denies leg edema and Denies lightheadedness Resp Denies cough, Denies hemoptysis and Denies wheezing GI Denies abdominal pain, Denies melena, Denies constipation, Denies diarrhea and Denies vomiting Denies urinary frequency, Denies dysuria and Denies urinary urgency Musc Denies arthralgias, Denies joint swelling, Denies numbness and Denies tingling Neuro Denies Abnormal speech present, Denies behavioral changes, Denies vertigo, Denies dizziness, Denies headache(s), Denies loss of vision, Denies memory loss, Denies numbness and Denies tingling Psych Denies anxiety, Denies behavioral changes, Denies depression, Denies memory loss and Denies panic attacks Lonnie/Lymph Denies easy bleeding and Denies easy bruising Aller/Immun Denies wheezing Physical exam (Primary Care) Vital Signs: Last Vital Signs Pulse 97 06/04/24 11:51 BP 122/6 L 06/04/24 11:51 Pulse Ox 99 06/04/24 11:51 Oxygen Delivery Method Room Air 06/04/24 11:51 BMI result Body Mass Index 30.1 Tobacco/Smoking Status: Tobacco use Status Tobacco use date assessed 12/07/23 06/04/24 11:52 Patient Tobacco Use Status Never used Tobacco 06/04/24 11:52 e-Cigarette/Vaping Use Never Used 06/04/24 11:52 Thrive Assessment: Date of Thrive Assessment Date Thrive assessed 01/12/22 06/04/24 11:52 Const General: healthy appearing, no acute distress, alert and awake Nutritional Appearance: well nourished Orientation/consciousness: oriented to person, oriented to place and oriented to time HENMT Ears: TM's normal bilaterally General nose exam: Normal nasal mucous membranes and turbinates present Eyes Conjunctivae: conjunctivae normal Sclerae: sclerae normal Pupils: Equal, round and reactive pupils present Neck Neck: Yes no lymphadenopathy and Yes no JVD Thyroid: Thyroid normal Carotids: no bruits Resp Effort & Inspection: normal respiratory effort and not tachypneic Auscultation: no crackles, no rales, no rhonchi and no wheezes Cardio Rate: regular rate Rhythm: regular rhythm Heart sounds: no murmurs and normal S1 and S2 GI Palpation (GI): Soft to palpation, nontender, no hepatomegaly and no splenomegaly Auscultation: normal bowel sounds Skin General skin exam: no rashes or lesions noted and dry skin Neuro General: oriented to person, oriented to place and oriented to time Cranial nerves: Yes Equal, round and reactive pupils present Speech: No Abnormal speech present Gait exam (Neuro): Normal gait present Motor exam (neuro): no tremor noted Extrem Right upper extremity: full ROM Left upper extremity: full ROM Right lower extremity: full ROM; no edema Left lower extremity: full ROM; no edema Psych Mental Status: mental status grossly normal Speech and movement: Normal speech and movement present Affect: normal affect Attitude: cooperative Thought process: Normal thought process present Office Procedures Flu Questionnaire Does the patient have a severe egg allergy?: No Results AMB Hemoglobin A1c AMB Hemoglobin A1c 5.1 % Last Edit by ABHILASH Maciel on 06/04/24 12:03 Immunizations Fluarix Triv [id number] (PF) 45 mcg (15 mcg x 3)/0.5 mL IM syringe Performing Provider: Trenton Willis PA-C Performing Location: [facility] Documented (not given) by: ABHILASH Maciel on 06/04/24 12:03 Reason Not Given: Patient Refused Results Reviewed Results Reviewed: Laboratory Last Values Hgb A1c (Clinic) 5.1 % (4.0-6.0) 06/04/24 11:53 Coding Level of Care Code Est Pt Level 4 (60813) Diagnoses Type 2 diabetes mellitus with hyperglycemia, without long-term current use of insulin E11.65 Diabetes mellitus complication status: with hyperglycemia Diabetes mellitus terminal system operator insulin use: without terminal system operator use Mixed hyperlipidemia E78.2 Hyperlipidemia type: mixed hyperlipidemia Assessment & Plan Assessment & Plan (1) DMII (diabetes mellitus, type 2): Code(s): E11.9 - Type 2 diabetes mellitus without complications Category: Medical Qualifiers: Diabetes mellitus complication status: with hyperglycemia Diabetes mellitus terminal system operator insulin use: without skilled nursing use Qualified Code(s): E11.65 - Type 2 diabetes mellitus with hyperglycemia Plan: Patient's A1c significantly improved with fasting and low carbohydrate diet. She uses metformin an as needed basis. Today's A1c at 5.1 from 7.0. She will continue her lifestyle and dietary modifications. Goal A1c is to remain below 6.5 (2) HLD (hyperlipidemia): Code(s): E78.5 - Hyperlipidemia, unspecified Category: Medical Qualifiers: Hyperlipidemia type: mixed hyperlipidemia Qualified Code(s): E78.2 - Mixed hyperlipidemia Plan: Patient's lipid panel showing very elevated total cholesterol and LDL. She is willing to start cholesterol medication with goal LDL to be below 100. Orders: Orders Influenza [id number] Immunization Today Z23 - Encounter for immunization Comprehensive [place]. Panel Fast 4 Months E11.65 - Type 2 diabetes mellitus with hyperglycemia Hemoglobin A1c 4 Months E11.65 - Type 2 diabetes mellitus with hyperglycemia Lipid Panel 4 Months E78.2 - Mixed hyperlipidemia AMB Hemoglobin A1c Today E11.65 - Type 2 diabetes mellitus with hyperglycemia Referrals Ophthalmology Referral E11.65 - Type 2 diabetes mellitus with hyperglycemia Medications: New atorvastatin 20 mg PO DAILY 90 tabs 1RF 90 days E78.2 - Mixed hyperlipidemia Patient Instructions: Goal: A1c to be below 6.5, LDL to be below 100 Barrier: Adherence to physical activity and healthy eating habits
== END 2024-06-04 12:07 | disposition home or self-care (01) ==
PROVIDERS: PCP Physician Assistant; Visit Provider Physician Assistant
DX: E11.65 Type 2 diabetes mellitus with hyperglycemia (principal); E78.2 Mixed hyperlipidemia; Z23 Encounter for immunization

== ENCOUNTER → 2024-06-04 11:36 | Outpatient (BNVA) | payer OTHER, SELFPAY | PROVIDERS: PCP Physician Assistant; Visit Provider Physician Assistant | DX: E11.65 Type 2 diabetes mellitus with hyperglycemia (principal); E78.2 Mixed hyperlipidemia | CPT/HCPCS: 83036; 90471; 99212 ==

== ENCOUNTER 2024-10-01 06:43 | Outpatient (REF) | payer OTHER, SELFPAY ==
[2024-10-01 07:25] LABS: Estimated Average Glucose 105 mg/dL; Hemoglobin A1c % 5.3 % (<6.0); Total Hemoglobin (HGBA1C) 3300.3096 umol/L
[2024-10-01 07:47] LABS: Alanine Aminotransferase 18 U/L (0-31); Albumin Level 4.2 g/dL (3.5-5.0); Alkaline Phosphatase 61 U/L (39-117); Anion Gap 15 (12-20); Aspartate Amino Transferase 20 U/L (5-31); Bilirubin Total 0.6 mg/dL (0.0-1.0); Blood Urea Nitrogen 10 mg/dL (9-16); Calcium 9.2 mg/dL (8.4-10.2); Carbon Dioxide 26 mmol/L (22-29); Chloride 104 mmol/L (96-108); Cholesterol 218 mg/dL (<200); Estimated Glomerular Filt Rate > 60; Glucose Fasting 98 mg/dL (60-99); HDL Cholesterol 65 mg/dL (>40); LDL Cholesterol Calculated 121 mg/dL (<100); Potassium 3.8 mmol/L (3.3-5.1); Sodium 141 mmol/L (135-145); Triglycerides 161 mg/dL (<150)
== END 2024-10-01 06:44 | disposition home or self-care (01) ==
LOC: HO.LAB 06:43
PROVIDERS: PCP Physician Assistant; Visit Provider Physician Assistant
DX: E11.65 Type 2 diabetes mellitus with hyperglycemia (principal); E78.2 Mixed hyperlipidemia
CPT/HCPCS: 36415; 80053; 80061; 83036

== ENCOUNTER 2024-10-02 10:51 | Outpatient (AMB) | payer OTHER, SELFPAY ==
--- NOTE | 2024-10-02 10:59 | MHC.PC.OV ---
Vital Signs 10/02/24 11:10 Height 4 ft 11 in Weight 146 lb 8 oz BMI 29.6 BP 122/74 Blood Pressure Location Lt brachial Position Sitting Pulse 86 Pulse Source Pulse Oximeter Pulse Oximetry (%) 97 Oxygen Delivery Method Room Air Intake Visit Reasons: f/u DMII/ HLD Plate Grainer Required: No Accompanied by: Self / Same As Patient Allergies No Known Allergies [No Known Allergies*] Allergy (Verified 10/02/24 11:25) Medication List - Last Reconciled 10/02/24 by Trenton Willis PA-C atorvastatin 20 mg PO DAILY 90 days blood sugar diagnostic (FreeStyle Lite Strips) Testing once a day as needed blood-glucose meter (FreeStyle Lite Meter kit) Testing once a day as needed desogestrel-ethinyl estradiol 0.15-0.03 mg (Apri) 1 tab PO DAILY lancets (FreeStyle Lancets) Testing once a day as needed metformin 500 mg PO DAILY 30 days Tobacco use date assessed: 10/02/24 Dental Screening Dental Screen Date: 10/02/24 Did you have a dental visit in the last 12 months?: Yes Did you have a dental problem in the last 6 months where you did not have access to dental care?: No Was dental information given to patient?: Patient has dentist HPI f/u DMII/ HLD HPI Details patient is a 39-year-old female here today for follow-up visit. Patient has a past medical history significant for type 2 diabetes, obesity and hyperlipidemia. Type 2 diabetes--> today's A1c at 4.9. at last visit we discussed patient's elevated blood sugars and was started on metformin. She admits to taking metformin on an as needed basis. She has been speaking with a singing teacher about diabetic diet. Patient has lost significant amount of weight and blood sugar seems to have improved. .. Hyperlipidemia: Most recent lipid panel showing much improved total cholesterol and LDL. She has been on atorvastatin 20 mg faithfully. Has not been taking cholesterol medication some unclear reason. .. .. Overweight: Has lost weight since last office visit in today's BMI at 29.6. Patient has lost significant amount of weight since changing diet and doing a intermittent fasting program. Laboratory Tests 02/05/24 06/01/24 10/01/24 09:24 08:52 06:50 Fasting Glucose 98 Hemoglobin A1c % 7.0 H 5.3 Cholesterol 285 H 306 H 218 H LDL Cholesterol, C alc 215 H 121 H PFSH Medical History Systolic murmur Dysmenorrhea Obesity (BMI 30-39.9) Surgical History Hx of section Family History Mother Breast cancer, Onset Age: 39 Maternal Grandmother Breast cancer Social History Housing: Apartment Alcohol intake: never Patient Tobacco Use Status: Never used Tobacco e-Cigarette/Vaping Use: Never Used Second Hand Smoke Exposure: No service: No Current occupational status: employed and other Current occupation: [employer] Sexual orientation: Straight/Heterosexual Gender identity: Female Cognitive needs: No Hearing needs: No Vision needs: No Female Reproductive History Menstrual Age of Menarche: 14 Questionnaire PHQ-9 Over the last 2 weeks, how often have you been bothered by any of the following problems? 1. Little interest or pleasure in doing things: not at all 2. Feeling down, depressed, or hopeless: not at all 3. Trouble falling or staying asleep, or sleeping too much: not at all 4. Feeling tired or having little energy: not at all 5. Poor appetite or overeating: not at all 6. Feeling bad about yourself - or that you are a failure or have let yourself or your family down: not at all 7. Trouble concentrating on things, such as reading the newspaper or watching television: not at all 8. Moving or speaking so slowly that other people could have noticed. Or the opposite - being so fidgety or restless that you have been moving around a lot more than usual: not at all 9. Thoughts that you would be better off or of hurting yourself in some way: not at all Total score: 0 Depression Screening Interpretation: Negative Depression Screening Done: Yes 52760 - PHQ-9 Billing: Yes Source: Developed by Drs. Kelvin Up, Britt B.W. Gerber Arnold and colleagues, with an educational risa from [employer]. Thrive Questionnaire Date Thrive assessed: 10/02/24 I am a: Patient What is your living situation today?: I have a steady place to live Within the past 12 months, did the food you bought not last and you didn't have the money to get more?: Never true Within the past 12 months, did you worry whether your food would run out before you got money to buy more?: Never true Do you have trouble paying for medicines?: No Do you have trouble getting transportation to medical appointments?: No Do you have trouble paying your heating and electricity bill?: No Do you have trouble taking care of your child, family member or friend?: No Do you have trouble with day-to-day activities such as bathing, preparing meals, shopping, managing finances, etc.?: No Are you currently unemployed and looking for a job?: No Are you interested in more education?: No Please select the resources that you would like help with: None Currently or been in a relationship where the following occur: No concerns reported THRIVE Score: 0 AUDIT C Alcohol Use Questionnaire (AUDIT-C) 1. How often do you have a drink containing alcohol?: Never 3. How often do you have six or more drinks on one occasion?: Never Total Score: 0 JANI-7 AMB Questionnaire JANI-7 Date JANI - 7 assessed: 10/02/24 Feeling nervous, anxious, or on edge: 0 = Not at all Not being able to stop or control worryin = Not at all Worrying too much about different things: 0 = Not at all Trouble relaxin = Not at all Being so restless that it is hard to sit still: 0 = Not at all Becoming easily annoyed or irritable: 0 = Not at all Feeling afraid as if something awful might happen: 0 = Not at all Total JANI-7 score (0-4 normal; 5-9 mild; 10-14 moderate; 15-21 severe): 0 Source: Developed by Drs. Kelvin Up, Gerber Roth and colleagues, with an educational risa from [employer]. JANI-7 Assessment Billing JANI-7 Assessment Tool: JANI-7 Assessment 51317 Review of Systems Const Denies headache(s) Eyes Denies loss of vision ENT Denies vertigo, Denies dizziness, Denies headache(s) and Denies sore throat Card Denies chest pain, Denies leg edema and Denies lightheadedness Resp Denies cough, Denies hemoptysis and Denies wheezing GI Denies abdominal pain, Denies melena, Denies constipation, Denies diarrhea and Denies vomiting Denies urinary frequency, Denies dysuria and Denies urinary urgency Musc Denies arthralgias, Denies joint swelling, Denies numbness and Denies tingling Neuro Denies Abnormal speech present, Denies behavioral changes, Denies vertigo, Denies dizziness, Denies headache(s), Denies loss of vision, Denies memory loss, Denies numbness and Denies tingling Psych Denies anxiety, Denies behavioral changes, Denies depression, Denies memory loss and Denies panic attacks Lonnie/Lymph Denies easy bleeding and Denies easy bruising Aller/Immun Denies wheezing Physical exam (Primary Care) Vital Signs: Last Vital Signs Pulse 86 10/02/24 11:10 BP 122/74 10/02/24 11:10 Pulse Ox 97 10/02/24 11:10 Oxygen Delivery Method Room Air 10/02/24 11:10 BMI result Body Mass Index 29.6 Tobacco/Smoking Status: Tobacco use Status Tobacco use date assessed 10/02/24 10/02/24 11:25 Patient Tobacco Use Status Never used Tobacco 10/02/24 10:59 e-Cigarette/Vaping Use Never Used 10/02/24 10:59 PHQ-9: PHQ-9 Score PHQ-9: Total score 0 10/02/24 11:27 Depression Screening Interpretation: Negative Thrive Assessment: Date of Thrive Assessment Date Thrive assessed 10/02/24 10/02/24 11:27 Currently or been in a relationship where the following occur: No concerns reported Const General: healthy appearing, no acute distress, alert and awake Nutritional Appearance: well nourished Orientation/consciousness: oriented to person, oriented to place and oriented to time HENMT Ears: TM's normal bilaterally General nose exam: Normal nasal mucous membranes and turbinates present Eyes Conjunctivae: conjunctivae normal Sclerae: sclerae normal Pupils: Equal, round and reactive pupils present Neck Neck: Yes no lymphadenopathy and Yes no JVD Thyroid: Thyroid normal Carotids: no bruits Resp Effort & Inspection: normal respiratory effort and not tachypneic Auscultation: no crackles, no rales, no rhonchi and no wheezes Cardio Rate: regular rate Rhythm: regular rhythm Heart sounds: no murmurs and normal S1 and S2 GI Palpation (GI): Soft to palpation, nontender, no hepatomegaly and no splenomegaly Auscultation: normal bowel sounds Skin General skin exam: no rashes or lesions noted and dry skin Neuro General: oriented to person, oriented to place and oriented to time Cranial nerves: Yes Equal, round and reactive pupils present Speech: No Abnormal speech present Gait exam (Neuro): Normal gait present Motor exam (neuro): no tremor noted Extrem Right upper extremity: full ROM Left upper extremity: full ROM Right lower extremity: full ROM; no edema Left lower extremity: full ROM; no edema Psych Mental Status: mental status grossly normal Speech and movement: Normal speech and movement present Affect: normal affect Attitude: cooperative Thought process: Normal thought process present Results AMB Hemoglobin A1c AMB Hemoglobin A1c 4.9 % Last Edit by ABHILASH Maciel on 10/02/24 11:26 Results Reviewed Results Reviewed: Laboratory Last Values Hgb A1c (Clinic) 4.9 % (4.0-6.0) 10/02/24 10:58 Coding Level of Care Code Est Pt Level 4 (29611) Diagnoses Type 2 diabetes mellitus with hyperglycemia, without long-term current use of insulin E11.65 Diabetes mellitus complication status: with hyperglycemia Diabetes mellitus correction insulin use: without correction use Mixed hyperlipidemia E78.2 Hyperlipidemia type: mixed hyperlipidemia Additional Codes JANI-7 Assessment Billing - JANI-7 Assessment Tool: JANI-7 Assessment 05886 ([id number]) PHQ-9 - 43372 - PHQ-9 Billing: Yes ([id number]) Assessment & Plan Assessment & Plan (1) DMII (diabetes mellitus, type 2): Code(s): E11.9 - Type 2 diabetes mellitus without complications Category: Medical Qualifiers: Diabetes mellitus complication status: with hyperglycemia Diabetes mellitus correction insulin use: without correction use Qualified Code(s): E11.65 - Type 2 diabetes mellitus with hyperglycemia Plan: Patient's A1c significantly improved with fasting and low carbohydrate diet. She uses metformin on a daily basis. . She will continue her lifestyle and dietary modifications. Goal A1c is to remain below 6.5 (2) HLD (hyperlipidemia): Code(s): E78.5 - Hyperlipidemia, unspecified Category: Medical Qualifiers: Hyperlipidemia type: mixed hyperlipidemia Qualified Code(s): E78.2 - Mixed hyperlipidemia Plan: Patient's most recent lipid panel showing excellent reduction in her total cholesterol and LDL. She continues on atorvastatin 20 mg. Will continue working on lifestyle and dietary modifications. Goal LDL to be below 100 Orders: Orders AMB Hemoglobin A1c 10/02/24 E11.65 - Type 2 diabetes mellitus with hyperglycemia Patient Instructions: Goal: A1c to remain below 6.0, LDL to be below 100 Barriers: Adherence to physical activity and healthy eating habits
[2024-10-02 11:10] VITALS: BP 122/74; PULSE 86; O2SAT 97; BMI 29.6
--- OUTSIDE RECORDS SUMMARY | 2024-10-02 13:00 | XMS_ITS | Clinical Summary ---
Author Organization [facility] ity Address [address] [place] [address] Care Team Providers Care Teachers' Aide Name Role Phone Unavailable Primary Care Provider Unavailabl e Social History Tobacco Use Types Packs/Day Years Used Date Smoking Tobacco: Never Assessed Comments Unknown Sex and Gender Information Value Date Recorded Sex Assigned at Not on file Legal Sex Female 9:51 AM EST Gender Identity Not on file Sexual Orientation Not on file Plan of Treatment Health Maintenance Due Date Last Done Comments Hepatitis B Vaccines (1 of 3 - 19+ 3-dose series) 2006 Cervical Cancer Screening: P ap Smear 2008 COVID-19 Vaccine ( - 2023-2 5 season) 2024 Influenza Vaccine (#1) 2024 04/12/2017 DTaP,Tdap,and Td Vaccines (2 - Td or Tdap) 03/01/2027 03/01/2017 HIB Vaccines Aged Out No longer eligi ble based on patient's age to complete this topic HPV Vaccines Aged Out No longer eligi ble based on patient's age to complete this topic Hepatitis A Vaccines Aged Out No long er eligible based on patient's age to complete this topic IPV Vaccines Aged Out No longer eligi ble based on patient's age to complete this topic MMR Vaccines Aged Out No longer eligi ble based on patient's age to complete this topic Meningococcal ACWY Vaccine Aged Out N o longer eligible based on patient's age to complete this topic Meningococcal B Vacine Aged Out No lo nger eligible based on patient's age to complete this topic Pneumococcal Vaccine: Pediat rics (0 to 5 Years) and At-Risk Patients (6 to 64 Years) Aged Out No longer eligi ble based on patient's age to complete this topic RSV Immunization Patients Un jonathan 20 months Aged Out No longer eligible b ased on patient's age to complete this topic Varicella Vaccines Aged Out No longer eligible based on patient's age to complete this topic
== END 2024-10-02 11:39 | disposition home or self-care (01) ==
LOC: HO.HMCH 10:51
PROVIDERS: PCP Physician Assistant; Visit Provider Physician Assistant
DX: E11.65 Type 2 diabetes mellitus with hyperglycemia (principal); E78.2 Mixed hyperlipidemia

== ENCOUNTER → 2024-10-02 10:51 | Outpatient (BNVA) | payer OTHER, SELFPAY | PROVIDERS: PCP Physician Assistant; Visit Provider Physician Assistant | DX: E11.65 Type 2 diabetes mellitus with hyperglycemia (principal); E78.2 Mixed hyperlipidemia | CPT/HCPCS: 83036; 96127; 99212 ==

== ENCOUNTER 2025-05-22 12:57 | Outpatient (AMB) | payer OTHER, SELFPAY ==
--- NOTE | 2025-05-22 13:00 | A.OFFPC_ITS ---
Vital Signs 05/22/25 13:01 Height 4 ft 11 in Weight 162 lb 6 oz BMI 32.8 BP 128/86 Blood Pressure Location Lt brachial Position Sitting Pulse 97 Pulse Source Pulse Oximeter Temp 97.3 F Temp Source Temporal Artery Scan Pulse Oximetry (%) 97 Oxygen Delivery Method Room Air Intake Visit Reasons: Left breast pain Allergies No Known Allergies (No Known Allergies*) Allergy (Verified 05/22/25 13:04) Tobacco use date assessed: 05/22/25 Dental Screening Dental Screen Date: 05/22/25 Did you have a dental visit in the last 12 months?: No Did you have a dental problem in the last 6 months where you did not have access to dental care?: No Was dental information given to patient?: Patient has dentist HPI HPI Comments History of Present Illness Details Patient is a 39-year-old female with history of type 2 diabetes, and hyperlipidemia presenting today for breast pain. She reports breast discomfort in the left breast, that intermittently spends to bilateral breasts, ongoing for 2 weeks. May be aggravated by movement. Denies any skin changes, nipple discharges, recent exercises or heavy weightlifting. Denies recent flu, fever or chills. Patient reports family history of breast cancer in her mother who in her 30s with breast cancer, and maternal grandmother. She reports weight loss due to dieting and lifestyle changes to help control diabetes. Patient has been getting screening mammograms annually for years. [facility] Medical History Systolic murmur Dysmenorrhea Obesity (BMI 30-39.9) Surgical History Hx of section Family History Mother Breast cancer, Onset Age: 39 Maternal Grandmother Breast cancer Social History Housing: Apartment Alcohol intake: never Patient Tobacco Use Status: Never used Tobacco e-Cigarette/Vaping Use: Never Used Second Hand Smoke Exposure: No service: No Current occupational status: employed and other Current occupation: [employer] Sexual orientation: Straight/Heterosexual Gender identity: Female Cognitive needs: No Hearing needs: No Vision needs: No Female Reproductive History Menstrual Age of Menarche: 14 Questionnaire PHQ-9 Over the last 2 weeks, how often have you been bothered by any of the following problems? 1. Little interest or pleasure in doing things: not at all 2. Feeling down, depressed, or hopeless: not at all 3. Trouble falling or staying asleep, or sleeping too much: not at all 4. Feeling tired or having little energy: not at all 5. Poor appetite or overeating: more than half the days 6. Feeling bad about yourself - or that you are a failure or have let yourself or your family down: not at all 7. Trouble concentrating on things, such as reading the newspaper or watching television: not at all 8. Moving or speaking so slowly that other people could have noticed. Or the opposite - being so fidgety or restless that you have been moving around a lot more than usual: not at all 9. Thoughts that you would be better off or of hurting yourself in some way: not at all Total score: 2 Source: Developed by Drs. Kelvin Up, Britt Arnold, Gerber Alberto and colleagues, with an educational risa from [employer] Thrive Questionnaire Date Thrive assessed: 10/02/24 I am a: Patient What is your living situation today?: I have a steady place to live Within the past 12 months, did the food you bought not last and you didn't have the money to get more?: I choose not to answer this question Within the past 12 months, did you worry whether your food would run out before you got money to buy more?: I choose not to answer this question Do you have trouble paying for medicines?: I choose not to answer this question Do you have trouble getting transportation to medical appointments?: I choose not to answer this question Do you have trouble paying your heating and electricity bill?: I choose not to answer this question Do you have trouble taking care of your child, family member or friend?: I choose not to answer this question Do you have trouble with day-to-day activities such as bathing, preparing meals, shopping, managing finances, etc.?: I choose not to answer this question Are you currently unemployed and looking for a job?: I choose not to answer this question Are you interested in more education?: I choose not to answer this question Please select the resources that you would like help with: None Currently or been in a relationship where the following occur: I choose not to answer THRIVE Score: 0 AUDIT C Alcohol Use Questionnaire (AUDIT-C) 1. How often do you have a drink containing alcohol?: Never 3. How often do you have six or more drinks on one occasion?: Never Total Score: 0 JANI-7 AMB Questionnaire JANI-7 Date JANI - 7 assessed: 10/02/24 Feeling nervous, anxious, or on edge: 0 = Not at all Not being able to stop or control worryin = Not at all Worrying too much about different things: 0 = Not at all Trouble relaxin = Not at all Being so restless that it is hard to sit still: 0 = Not at all Becoming easily annoyed or irritable: 0 = Not at all Feeling afraid as if something awful might happen: 0 = Not at all Total JANI-7 score (0-4 normal; 5-9 mild; 10-14 moderate; 15-21 severe): 0 Source: Developed by Drs. Kelvin Up, Britt Arnold, Gerber Alberto and colleagues, with an educational risa from [employer] Physical exam (Primary Care) Vital Signs: Last Vital Signs Temp 97.3 F 05/22/25 13:01 Pulse 97 05/22/25 13:01 BP 128/86 05/22/25 13:01 Pulse Ox 97 05/22/25 13:01 Oxygen Delivery Method Room Air 05/22/25 13:01 General: Well-appearing, alert, oriented ?3, in no acute distress. Cardiovascular: RRR, S1-S2 appreciated, no murmurs, rubs or gallops. Respiratory: Lungs clear to auscultation bilaterally, no wheezes, rales or rhonchi. Abdomen: Soft, nontender, nondistended. Normoactive bowel sounds. Breast exam: Breasts symmetrical, without visible masses, skin changes or dimpling. Nipples without inversion, discharge or rash. No palpable masses, tenderness or nodules. No axillary or supraventricular lymphadenopathy. BMI result Body Mass Index 32.8 Tobacco/Smoking Status: Tobacco use Status Tobacco use date assessed 05/22/25 05/22/25 13:06 Patient Tobacco Use Status Never used Tobacco 05/22/25 13:00 e-Cigarette/Vaping Use Never Used 05/22/25 13:00 PHQ-9: PHQ-9 Score PHQ-9: Total score 2 05/22/25 13:00 Thrive Assessment: Date of Thrive Assessment Date Thrive assessed 10/02/24 05/22/25 13:00 Currently or been in a relationship where the following occur: I choose not to answer Results AMB Hemoglobin A1c AMB Hemoglobin A1c 5.6 % Last Edit by Maris Pagan CMA on 05/22/25 13:13 Coding Level of Care Code Est Pt Level 3 (73457) Diagnoses Breast pain in female N64.4 Encounter for screening mammogram for malignant neoplasm of breast Z12.31 Breast cancer screening modality: mammogram Family history of breast cancer in first degree relative Z80.3 Assessment & Plan Assessment & Plan (1) Breast pain in female: Code(s): N64.4 - Mastodynia Plan: Patient presents with bilateral breast discomfort, left more than right for 2 weeks, may get aggravated by movement sometimes. Denies any skin changes, nipple discharges, recent exercises or heavy weightlifting. Denies recent flu, fever or chills. Patient reports family history of breast cancer in her mother who in her 30s with breast cancer, and maternal grandmother. Breast exam is unremarkable. Patient's symptoms are most likely secondary to fibrocystic disease of the breast. Plan - recommended well fitted supportive bras - warm compresses - may use nsaids as needed for pain/discomfort (2) Breast cancer screening: Code(s): Z12.39 - Encounter for other screening for malignant neoplasm of breast Qualifiers: Breast cancer screening modality: mammogram Qualified Code(s): Z12.31 - Encounter for screening mammogram for malignant neoplasm of breast Plan: Patient with family history of breast cancer in her mother who in her 30s with breast cancer, and maternal grandmother. Patient has been getting screening mammograms annually for years. Last mammogram done in October 2023 - BI-RADS 1, with recommendation for 1 year follow up - mammogram ordered (3) Family history of breast cancer in first degree relative: Comment: Has been getting screening mammograms annually for years. Code(s): Z80.3 - Family history of malignant neoplasm of breast Category: Medical Plan: as above Orders: Orders AMB Hemoglobin A1c Today Z13.9 - Encounter for screening, unspecified MM tomosynthesis screening BI Today Z12.31 - Encounter for screening mammogram for malignant neoplasm of breast
[2025-05-22 13:01] VITALS: BP 128/86; PULSE 97; TEMP 36.3; O2SAT 97; BMI 32.8
--- OUTSIDE RECORDS SUMMARY | 2025-05-22 15:54 | XMS_ITS | Clinical Summary ---
Author Organization [facility] ity Address [address] [place] [address] Care Team Providers Care Property Preservation Specialist Name Role Phone Unavailable Primary Care Provider [...] Cervical Cancer Screening: P ap Smear 2008 HPV Vaccines (1 - 3-dose SCD M series) 2014 Depression Screening 2024 COVID-19 Vaccine ( - 2023-2 5 season) 2025 Influenza Vaccine (#1) 2025 04/12/2017 DTaP,Tdap,and Td Vaccines (2 - Td or Tdap) 03/01/2027 03/01/2017 RSV Immunization Adult Patie nts (1 - 1-dose 75+ series) 2062 HIB Vaccines Aged Out No longer eligi [...] age to complete this topic Meningococcal B Vaccine Aged Out No l onger eligible based on patient's age to complete this topic Pneumococcal Vaccine: Pediat rics (0 to 5 Years) and At-Risk Patients (6 to 49 Years) Aged Out No longer eligi ble based on patient's age to complete this topic RSV Immunization Patients Un jonathan 20 months Aged Out No longer eligible b ased on patient's age to complete this topic Varicella Vaccines Aged Out No longer eligible based on patient's age to complete this topic
== END 2025-05-22 13:31 | disposition home or self-care (01) ==
LOC: HO.HMCH 12:58
PROVIDERS: Visit Provider Student in an Organized Health Care Education/Training Program
DX: N64.4 Mastodynia (principal); Z80.3 Family history of malignant neoplasm of breast

== ENCOUNTER → 2025-05-22 12:57 | Outpatient (BNVA) | payer OTHER, SELFPAY | PROVIDERS: Visit Provider Student in an Organized Health Care Education/Training Program | DX: E11.9 Type 2 diabetes mellitus without complications (principal); E78.5 Hyperlipidemia, unspecified; N64.4 Mastodynia; Z80.3 Family history of malignant neoplasm of breast | CPT/HCPCS: 83036; 96127 ==

== ENCOUNTER 2025-06-03 09:52 | Outpatient (AMB) | payer OTHER, SELFPAY ==
[2025-06-03 09:56] VITALS: BP 120/78; PULSE 96; TEMP 36.8; O2SAT 100; BMI 33.3
--- NOTE | 2025-06-03 09:56 | AM.OFFWIN_ITS ---
Intake Vital Signs 06/03/25 09:56 Height 4 ft 11 in Weight 165 lb BMI 33.3 BP 120/78 Blood Pressure Location Lt brachial Position Sitting Pulse 96 Pulse Source Pulse Oximeter Temp 98.3 F Temp Source Oral Pulse Oximetry (%) 100 Oxygen Delivery Method Room Air Intake Visit Reasons: EP-b/l eyes itchy, pain & headaches Intake Note: Patient presents c/o bilateral itchy eyes, feels like something in them, watery, since yesterday Patient Tobacco Use Status: Never used Tobacco Allergies No Known Allergies (No Known Allergies*) Allergy (Verified 06/03/25 09:59) Do you need a note to return to daycare/school/sports/work: Yes HPI HPI Comments History of Present Illness Details History of Present Illness - The patient is a 39-year-old female pr esenting with both eyelid swelling and discharge. - The eyelid swelling began recently and worsened overnight, with no acute changes in vision reported. Denies pain though eyes are sensitive to light and eyelids are painful, L>R. - The discharge is sticky, initially helen ar, turning white upon drying, with occasional green-yellow coloration. - The patient reports associated symptom s of headaches and itchy, painful eyes. 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 - Does not take a daily allergy pill. [facility] Medical History Systolic murmur Dysmenorrhea Obesity (BMI 30-39.9) Surgical History Hx of section Family History Mother Breast cancer, Onset Age: 39 Maternal Grandmother Breast cancer Social History Housing: Apartment Alcohol intake: never Patient Tobacco Use Status: Never used Tobacco e-Cigarette/Vaping Use: Never Used Second Hand Smoke Exposure: No service: No Current occupational status: employed and other Current occupation: [employer] Sexual orientation: Straight/Heterosexual Gender identity: Female Cognitive needs: No Hearing needs: No Vision needs: No Female Reproductive History Menstrual Age of Menarche: 14 Review of Systems Narrative Review of Systems - Ophthalmologic: Reports swelling, sticky discharge in eyes. Denies acute vision changes or pain in eyes, eyelids are painful and swollen. - Neurological: Reports headaches. - Respiratory: Denies cough or other respiratory symptoms. All systems reviewed and are unremarkable except as noted in HPI Const All systems reviewed & are unremarkable except as noted in HPI and below Physical Exam Exam Exam: Physical Exam General: Cooperative, healthy appearing, comfortable, no acute distress and well developed Orientation: Patient oriented x3 Limitations: No limitations Head: Normal to inspection Ears: Hearing grossly normal bilaterally Nose: Normal External nose present Face and sinus: Normal facial exam Eyes: as below Neck: Normal visual inspection and Yes full ROM Respiratory: Normal respiratory effort and able to speak in complete sentences. Skin: No rashes or lesions noted Neuro: Patient oriented x3 Extremities: Normal to inspection Vital Signs: Last Vital Signs Temp 98.3 F 06/03/25 09:56 Pulse 112 H 06/03/25 09:56 BP 120/78 06/03/25 09:56 Pulse Ox 100 06/03/25 09:56 Oxygen Delivery Method Room Air 06/03/25 09:56 BMI result Body Mass Index 33.3 Eyes Alignment and Position: alignment normal and position normal Periorbital: periorbital findings normal Eyelids: Yes eyelid abnormality (slight edema upper eyelids Left>Right) Conjunctivae: conjunctivae normal Sclerae: sclerae normal Pupils: Equal, round and reactive pupils present Neuro Cranial nerves: Yes Equal, round and reactive pupils present Assessment & Plan Assessment & Plan (1) Allergic rhinoconjunctivitis of both eyes: Code(s): J30.9 - Allergic rhinitis, unspecified; H10.13 - Acute atopic conjunctivitis, bilateral Plan Patient was informed and verbally consented to the use of an ambient scribe for clinic note documentation during this visit. Allergic Conjunctivitis vs Bacterial Conjunctivitis vs other - Recommended Pataday eye drops, one drop in each eye daily as needed for allergy symptoms, more likely as itchy, watery and eyelids swollen. - Advised taking an [id number] allergy pill daily. - Instructed to consult an hoof and shoe inspector MIGUEL if eye pain develops/worsens as it could be an eye emergency, right now she describes her eyelids as painful, not her actual eyes. Eyelids are swollen and her eyes appear completely normal with no noted discharge on exam. - Prescribed erythromycin ointment to be used if symptoms do not improve with Pataday and become more green/yellow/purulent. Medications: New olopatadine 0.7% (Pataday Once Daily Relief) 1 drp ophthalmic (eye) Q24H PRN 5 mL 0RF itching 90 days erythromycin Apply to both eyes 4 times a day while awake 0.5 inches ophthalmic (eye) QID 7 grams 0RF Coding Level of Care Code Est Pt Level 3 (99931) Diagnoses Allergic rhinoconjunctivitis of both eyes J30.9; H10.13
== END 2025-06-03 10:30 | disposition home or self-care (01) ==
PROVIDERS: PCP Physician Assistant; Visit Provider Physician Assistant
DX: J30.9 Allergic rhinitis, unspecified (principal); H10.13 Acute atopic conjunctivitis, bilateral

== ENCOUNTER 2025-06-06 11:31 | Outpatient (AMB) | payer OTHER, SELFPAY ==
[2025-06-06 11:34] VITALS: BP 112/68; PULSE 91; TEMP 36.6; O2SAT 99; BMI 28.9
--- NOTE | 2025-06-06 11:34 | AM.OFFWIN_ITS ---
Intake Vital Signs 06/06/25 11:34 Height 4 ft 11 in Weight 143 lb BMI 28.9 BP 112/68 Blood Pressure Location Lt brachial Position Sitting Pulse 91 Pulse Source Pulse Oximeter Temp 98 F Temp Source Oral Pulse Oximetry (%) 99 Oxygen Delivery Method Room Air Intake Visit Reasons: EP Left eye swelling Intake Note: Patient returns c/o left eye worsening - was seen on 06/03 for the same thing & it has gotten worse. Patient Tobacco Use Status: Never used Tobacco Allergies No Known Allergies (No Known Allergies*) Allergy (Verified 06/06/25 11:36) HPI HPI Comments History of Present Illness Details History of Present Illness - The patient is a 39-year-old individua l presenting with worsening swelling and redness around the eye. - The issue started after using makeup d uring a social event, which may have introduced bacteria to the skin. - The patient reports that the swelling and redness have worsened since onset, she came to this clinic last week and was RX'd erythromycin ointment and Pataday eye drops but neither worked. - There is no history of fever, vision c hanges, or eye pain, but the patient experiences itchiness. - The patient has no history of MRSA inf ections. [facility] Medical History Systolic murmur Dysmenorrhea Obesity (BMI 30-39.9) Surgical History Hx of section Family History Mother Breast cancer, Onset Age: 39 Maternal Grandmother Breast cancer Social History Housing: Apartment Alcohol intake: never Patient Tobacco Use Status: Never used Tobacco e-Cigarette/Vaping Use: Never Used Second Hand Smoke Exposure: No service: No Current occupational status: employed and other Current occupation: [employer] Sexual orientation: Straight/Heterosexual Gender identity: Female Cognitive needs: No Hearing needs: No Vision needs: No Female Reproductive History Menstrual Age of Menarche: 14 Review of Systems Narrative Review of Systems - General: Denies fever. - Eyes: Reports swelling and redness around the eye, denies vision changes or eye pain. All systems reviewed and are unremarkable except as noted in HPI Physical Exam Exam Exam: Physical Exam General: Cooperative, healthy appearing, comfortable, no acute distress and well developed Orientation: Patient oriented x3 Limitations: No limitations Head: Normal to inspection Ears: Hearing grossly normal bilaterally Nose: Normal External nose present Face and sinus: Normal facial exam Eyes: Left upper and lower eyelids with edema and erythema, EOM intact, PERRLA, no injection in left eye. Neck: Normal visual inspection and Yes full ROM Respiratory: Normal respiratory effort and able to speak in complete sentences. Skin: No rashes or lesions noted, but possible infection around the eye due to makeup use. Neuro: Patient oriented x3 Extremities: Normal to inspection Vital Signs: Last Vital Signs Temp 98 F 06/06/25 11:34 Pulse 91 06/06/25 11:34 BP 112/68 06/06/25 11:34 Pulse Ox 99 06/06/25 11:34 Oxygen Delivery Method Room Air 06/06/25 11:34 BMI result Body Mass Index 28.9 Assessment & Plan Assessment & Plan (1) Periorbital cellulitis of left eye: Code(s): L03.213 - Periorbital cellulitis Plan Patient was informed and verbally consented to the use of an ambient scribe for clinic note documentation during this visit. Periorbital Cellulitis - Initiate oral antibiotics as topical treatment was ineffective. - Advise discontinuation of current makeup products to prevent further infection. - Instruct the patient to take antibiotics every 6 to 8 hours and monitor for worsening symptoms. - Recommend follow-up if here if symptoms do not improve or worsen. May need Doxy but no hx of MRSA infection. Medications: New cephalexin 500 mg PO Q6H 28 caps 0RF Coding Level of Care Code Est Pt Level 3 (24544) Diagnoses Periorbital cellulitis of left eye L03.213
--- OUTSIDE RECORDS SUMMARY | 2025-06-06 12:21 | XMS_ITS | Clinical Summary ---
Author Organization [facility] ity Address [address] [place] [address] Care Team Providers Care Sock Drier Name Role Phone Unavailable Primary Care Provider [...] series) 2014 Depression Screening 2024 COVID-19 Vaccine (1 - 2024-2 6 season) 2025 Influenza Vaccine (#1) 2025 04/12/2017 [...]
== END 2025-06-06 12:34 | disposition home or self-care (01) ==
PROVIDERS: PCP Physician Assistant; Visit Provider Physician Assistant
DX: L03.213 Periorbital cellulitis (principal)